=== PATIENT | female | born 1925 | race Caucasian/White ===

== ENCOUNTER 2016-11-18 06:19 | Emergency (ER) | payer MEDICARE ==
[~2016-11-18] VITALS: Ht 162.6 cm; Wt 68.0 kg
[~2016-11-18 06:19] MED LIST: AMLO5TAB96 PO; CEPH500C3 PO; LORTA5 PO; PERC2.5T PO
[2016-11-18 06:26] VITALS: BP 124/87; PULSE 57; RESP 16; TEMP 97.7; O2SAT 98
--- NOTE | 2016-11-18 06:43 | PD ---
HPI Chief Complaint: Head Injury Time Seen by Provider: 06:38 Travel History International Travel<30 days: No Contact w/Intl Traveler<30days: No Traveled to known affect area: No History of Present Illness HPI 89-year-old female patient presents to the ER today brought in by her daughter, states that she has a bad left hip and knee and does not know what happened but her left leg gave out on her and she fell and hit her head, has blood on her right scalp, is not sure whether she lost consciousness. She denies any other injuries but has pain in her left hip and knee which she has had in the past. She denies any chest pains, dizziness, shortness of breath, or other symptoms. Modifying Factors: None Associated Signs & Symptoms: Fall, head injury, scalp injury, left hip and knee pain Risk Factors: Elderly PFSH Past Medical History Arthritis: Yes Cancer: No Cardiovascular Problems: No High Cholesterol: Yes Diabetes: No Diminished Hearing: Yes ([place]) Diverticulitis: Yes Gastrointestinal Disorders: Yes (DIVERTICULITIS, COLON SURGERY, POLYPS REMOVE) Glaucoma: No Hepatitis: No Hiatal Hernia: No Hypertension: Yes Musculoskeletal: Yes (BONE SPURS REMOVED) Psychiatric: No Reproductive: Yes () Respiratory: No Thyroid Disease: No Menopausal: Yes Ectopic : Yes Past Surgical History Abdominal Surgery: Yes (resection due to diverticulitis ) Appendectomy: Yes Section: Yes Cholecystectomy: Yes Gynecologic Surgery: Yes (sx for tubal ) Hysterectomy: Yes Oral Surgery: Yes (tonsillectomy) Pacemaker: No Tonsillectomy: Yes Other Surgery: Yes Social History Alcohol Use: Yes (OCCAS. MIX DRINKS, WINE) Tobacco Use: No Substance Use: No Allergies-Medications (Allergen,Severity, Reaction): Coded Allergies: Smoke (Verified Allergy, Severe, RASH, DIFFICULTY BREATHING, 11/18/16) grass pollen (Unverified Allergy, Severe, DIFFICULTY BREATHING, 11/18/16) PT STATES SOME GRASSES mold (Unverified Allergy, Severe, DIFFICULTY BREATHING AND RASH, 11/18/16) mold extracts (Unverified Allergy, Severe, RASH AND DIFFICULTY BREATHING, 11/18/16) willow (Unverified Allergy, Severe, SOB, 11/18/16) Uncoded Allergies: CLOROX (Allergy, Severe, RASH, 10/15/12) MILDEW (Allergy, Severe, DIFFUCULTY BREATHING, 10/15/12) unknown antibiotic (Allergy, Severe, unknown reaction, 10/15/12) Reported Meds & Prescriptions Reported Meds & Active Scripts Active Keflex (Cephalexin Monohydrate) 500 Mg Cap 1 Tab PO BID 7 Days Hydrocodone/Acetaminophen 5 mg/325 mg Acetaminophen 325/5 Hydrocodone Tab 1 Tab PO Q6H PRN Reported Percocet 2.5/325 (Oxycodone/Acetaminophen) Oxycodone 2.5/325 Acetaminophen Tab 1 Tab PO Q6H Norvasc (Amlodipine Besylate) 5 Mg Tab 5 Mg PO DAILY Review of Systems Except as stated in HPI: all other systems reviewed are Neg Physical Exam Narrative GENERAL: Well-developed elderly white female patient currently in mild distress. Awake and oriented 3. SKIN: Focused skin assessment warm/dry. HEAD: Atraumatic. Normocephalic. Hematoma and dried blood over the right scalp area. EYES: Pupils equal and round. No scleral icterus. No injection or drainage. ENT: No nasal bleeding or discharge. Mucous membranes pink and moist. NECK: Trachea midline. No JVD. CARDIOVASCULAR: Regular rate and rhythm. No murmur appreciated. RESPIRATORY: No accessory muscle use. Clear to auscultation. Breath sounds equal bilaterally. GASTROINTESTINAL: Abdomen soft, non-tender, nondistended. Hepatic and splenic margins not palpable. Pelvis: Stable, tender palpation in the left hip. MUSCULOSKELETAL: No obvious deformities. No clubbing. No cyanosis. No edema. NEUROLOGICAL: Awake and alert. No obvious cranial nerve deficits. Motor grossly within normal limits. Normal speech. PSYCHIATRIC: Appropriate mood and affect; insight and judgment normal. Data Data Last Documented VS Vital Signs Date Time Temp Pulse Resp B/P (MAP) Pulse Ox O2 Delivery O2 Flow Rate FiO2 11/18/16 06:26 97.7 57 16 124/87 (99) 98 Room Air Orders Orders Ct Brain W/O Iv Contrast(Rout) (11/18/16 06:29) Ct Cerv Spine W/O Contrast (11/18/16 06:29) Hip, Uni(Ap&Lat) W Ap Pelvis (11/18/16 06:38) Knee, Complete (4vws) (11/18/16 06:38) MDM Medical Decision Making Medical Screen Exam Complete: Yes Emergency Medical Condition: Yes Medical Record Reviewed: Yes Differential Diagnosis Fall, head injury, scalp injury, knee and hip pain: contusions versus scalp laceration versus cranial injuries versus fractures Narrative Course CAT scan and x-rays were ordered for review of injury for the patient. Scalp area is irrigated by nurses. Physician Communication Physician Communication Case is signed out to oncoming physician, Dr. Marroquin, at 7 AM. Diagnosis Primary Impression: Fall at home Additional Impression: Head injury, acute, with loss of consciousness Condition: Stable Karissa Gonzalez MD Nov 18, 2016 06:43
--- NOTE | 2016-11-18 07:06 | RADRPT ---
EXAM DATE/TIME: 11/18/2016 06:52 [facility] COMPARISON: CT BRAIN W/O CONTRAST, October 24, 2015, 12:34. INDICATIONS : Trauma, fell and hit head. RADIATION DOSE: 33.04 CTDIvol (mGy) MEDICAL HISTORY : Hypertension. Diverticulitis. SURGICAL HISTORY : Hysterectomy. section.Appendectomy.Cholecystectomy. Colon surgery. ENCOUNTER: Initial ACUITY: 1 day PAIN SCALE: 6/10 LOCATION: Right cranial TECHNIQUE: Multiple contiguous axial images were obtained of the head. Using automated exposure control and adj ustment of the mA and/or kV according to patient size, radiation dose was kept as low as reasonably a chievable to obtain optimal diagnostic quality images. DICOM format image data is available electro nically for review and comparison. FINDINGS: CEREBRUM: The ventricles are normal for age. No evidence of midline shift, mass lesion, hemorrhage or acute in farction. No extra-axial fluid collections are seen. POSTERIOR FOSSA: The cerebellum and brainstem are intact. The 4th ventricle is midline. The cerebellopontine angle i s unremarkable. EXTRACRANIAL: The visualized portion of the orbits is intact. SKULL: There is a right-sided parietal soft tissue hematoma without evidence of underlying skull fracture. T he remainder of the soft tissues are normal. Orbits and sinuses are clear. CONCLUSION: Soft tissue hematoma overlying the right parietal region. No underlying osseous injury and no intracr anial injury.. Gaby Macedo MD on November 18, 2016 at 7:03 Board Certified Radiologist. This report was verified electronically.
--- NOTE | 2016-11-18 07:11 | RADRPT ---
EXAM DATE/TIME: 11/18/2016 06:52 [facility] COMPARISON: CT CERVICAL SPINE W/O CONTRAST, October 24, 2015, 12:34. INDICATIONS : Trauma, fell and hit head. RADIATION DOSE: 20.27 CTDIvol (mGy) MEDICAL HISTORY : Diverticulitis. Hypertension. SURGICAL HISTORY : Appendectomy. Hysterectomy. section.Cholecystectomy. Colon surgery. ENCOUNTER: Initial ACUITY: 1 day PAIN SCALE: 1/10 LOCATION: neck TECHNIQUE: Volumetric scanning of the cervical spine was performed. Multiplanar reconstructions in the sagittal, coronal and oblique axial planes were performed. Using automated exposure control and adjustment o f the mA and/or kV according to patient size, radiation dose was kept as low as reasonably achievable to obtain optimal diagnostic quality images. DICOM format image data is available electronically f or review and comparison. FINDINGS: VERTEBRAE: Normal vertebral body height. ALIGNMENT: No evidence of subluxation. Stable degenerative disc changes from C4-C7. Stable facet degenerative changes. No significant spinal canal narrowing. The adjacent soft tissues are unremarkable. The imaged lungs are clear. CONCLUSION: Stable degenerative changes of the cervical spine. No evidence of fracture. No soft tissue injury. Gaby Macedo MD on November 18, 2016 at 7:07 Board Certified Radiologist. This report was verified electronically.
--- NOTE | 2016-11-18 07:43 | RADRPT ---
EXAM DATE/TIME: 11/18/2016 07:20 [facility] COMPARISON: No previous studies available for comparison. INDICATIONS : Left hip pain post fall. MEDICAL HISTORY : Hypertension. SURGICAL HISTORY : None. ENCOUNTER: Initial ACUITY: 1 day PAIN SCORE: 4/10 LOCATION: Left hip. FINDINGS: Multiple views of the hips are obtained with severe degenerative changes seen within the left femoral head and acetabulum, superior lateral joint line migration subchondral cyst formation and subchondra l sclerosis. There is no visualized fracture of the disease. The bones appear normal mineralization. Soft tissues appear normal. 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 No visualized fracture. If there is a concern for occult fracture consider further evaluation with CT. Gaby Macedo MD on November 18, 2016 at 7:39 Board Certified Radiologist. This report was verified electronically.
--- NOTE | 2016-11-18 07:49 | RADRPT ---
EXAM DATE/TIME: 11/18/2016 07:23 [facility] COMPARISON: No previous studies available for comparison. INDICATIONS : Left knee pain post fall. MEDICAL HISTORY : None. SURGICAL HISTORY : None. ENCOUNTER: Initial ACUITY: 1 day PAIN SCORE: 4/10 LOCATION: Left knee. FINDINGS: Four view examination of the left knee demonstrates no evidence of fracture or dislocation. Bony min eralization is normal. The articular surfaces are intact. There is mild soft tissue prominence overl jesus manuel the patella. Extensive vascular calcifications are identified posteriorly.. CONCLUSION: Soft tissue prominence overlying the region of the patella consistent with contusion. Otherwise the e xam. Gaby Macedo MD on November 18, 2016 at 7:46 Board Certified Radiologist. This report was verified electronically.
[2016-11-18 07:53] VITALS: BP 126/63; PULSE 55; RESP 20; O2SAT 98
[2016-11-18] MEDS ORDERED: MORPHINE SULFATE 4 MG/ML INJ IV PUSH ONE (08:00)
--- NOTE | 2016-11-18 08:20 | PD ---
Physical Exam Time Seen by Provider: 08:[address] Marroquin asked me to repair the patients scalp laceration. Data Data Last Documented VS Vital Signs Date Time Temp Pulse Resp B/P (MAP) Pulse Ox O2 Delivery O2 Flow Rate FiO2 11/18/16 07:53 55 20 126/63 (84) 98 Room Air 11/18/16 06:[address] Brain W/O Iv Contrast(Rout) (11/18/16 06:29) Ct Cerv Spine W/O Contrast (11/18/16 06:29) Hip, Uni(Ap&Lat) W Ap Pelvis (11/18/16 06:38) Knee, Complete (4vws) (11/18/16 06:38) Morphine Inj (Morphine Inj) (11/18/16 08:00) MDM Supervised Visit with WALLACE: Yes Narrative Course Dr. Marroquin asked me to repair the patients scalp laceration. See my procedure note. Procedures Procedure Narrative LACERATION LOCATION: Right frontal scalp LENGTH: 2 cm NUMBER OF STITCHES/ROGER: 4 roger REPAIR: The area of the laceration was prepped with Betadine and sterilely draped. The laceration was infiltrated with 1% lidocaine. The wound was copiously irrigated and explored without evidence of foreign body, tendon injury or neurovascular injury. The wound was closed using roger. This was a single layer repair. A sterile dressing was applied. The patient was advised to keep the dressing clean and dry. Patient tolerated the procedure well. Diagnosis Primary Impression: Fall at home Additional Impression: Head injury, acute, with loss of consciousness Condition: Stable Christina Silva [facility] Nov 18, 2016 08:20
[2016-11-18] MEDS ORDERED: TRAM50TA PO (08:28)
--- NOTE | 2016-11-18 08:28 | PD ---
Data Data Last Documented VS Vital Signs Date Time Temp Pulse Resp B/P (MAP) Pulse Ox O2 Delivery O2 Flow Rate FiO2 11/18/16 07:53 55 20 126/63 (84) 98 Room Air 11/18/16 06:[address] Brain W/O Iv Contrast(Rout) (11/18/16 06:29) Ct Cerv Spine W/O Contrast (11/18/16 06:29) Hip, Uni(Ap&Lat) W Ap Pelvis (11/18/16 06:38) Knee, Complete (4vws) (11/18/16 06:38) Morphine Inj (Morphine Inj) (11/18/16 08:00) MDM Supervised Visit with WALLACE: No Narrative Course This patient was reevaluated by me. She had a closed head injury and has a laceration on the scalp. Laceration was irrigated by nurses and the physician virtual customer assistant repaired it. CT of the head and cervical spine were reassuring and x- rays are reassuring. Patient was able to ambulate here without difficulty so I doubt an occult hip fracture. Patient will be discharged home. Diagnosis Primary Impression: Fall at home Qualified Codes: W19.XXXA - Unspecified fall, initial encounter; Y92.099 - Unspecified place in other non-institutional residence as the place of occurrence of the external cause Additional Impression: Head injury, acute, with loss of consciousness Qualified Codes: S06.9X9A - Unspecified intracranial injury with loss of consciousness of unspecified duration, initial encounter Patient Instructions: General Instructions Additional Instruction: If you develop headache, difficulty walking, difficulty talking, weakness, numbness, lightheadedness or severe pain return to the emergency department. If you develop fevers, redness, swelling, or discharge from your wound return to the emergency room. Keep your wound dry for 24 hours. After that time, wash gently with warm soap and water. Do not use peroxide. Do not soak in baths or go swimming. Have your roger removed in 3-5 days. Med/Other Pt SpecificInfo: Prescription(s) given Scripts Tramadol (Tramadol) 50 Mg Tab 50 MG PO Q6H Y for PAIN, #12 TAB 0 Refills Prov: June Marroquin MD 11/18/16 Disposition: 01 DISCHARGE HOME Condition: Stable June Marroquin MD Nov 18, 2016 08:28
== END 2016-11-18 09:50 | disposition home or self-care (01) ==
LOC: NEPC 06:19
DX: S06.9X9A Unspecified intracranial injury with loss of consciousness of unspecified duration, initial encounter (principal); S01.01XA Laceration without foreign body of scalp, initial encounter; W19.XXXA Unspecified fall, initial encounter; Y92.099 Unspecified place in other non-institutional residence as the place of occurrence of the external cause; I10 Essential (primary) hypertension; M19.90 Unspecified osteoarthritis, unspecified site; E78.00 Pure hypercholesterolemia, unspecified
CPT/HCPCS: 12001; 70450; 72125; 73502; 73564; 96374; 99285; J2270

== ENCOUNTER 2016-11-23 10:45 | Emergency (ER) | payer MEDICARE ==
[~2016-11-23] VITALS: Ht 157.5 cm; Wt 53.9 kg
[~2016-11-23 10:45] MED LIST changes: +TRAM50TA PO
[2016-11-23 10:58] VITALS: BP 153/76; PULSE 62; RESP 18; TEMP 98.3
[2016-11-23] MEDS ORDERED: AMLO5TAB2 PO (11:09)
[2016-11-23] MEDS ORDERED: [UNRECOGNIZED DRUG - REMARK] PO (11:09)
[2016-11-23] MEDS ORDERED: PERC5TAB12 PO (11:09)
--- NOTE | 2016-11-23 11:24 | PD ---
HPI Chief Complaint: Wound/Suture/Staple Re-Check Time Seen by Provider: 11:23 Travel History International Travel<30 days: No Contact w/Intl Traveler<30days: No Traveled to known affect area: No History of Present Illness HPI 89-year-old female presents emergency department for staple removal to her scalp. Patient reports she had head injury 11/18/16 with scalp laceration repaired with roger in emergency department. She denies headaches, visual changes, nausea vomiting, weakness. PFSH Past Medical History Arthritis: Yes Cancer: No Cardiovascular Problems: No High Cholesterol: Yes Diabetes: No Diminished Hearing: Yes ([place] Diverticulitis: Yes Gastrointestinal Disorders: Yes (DIVERTICULITIS, COLON SURGERY, POLYPS REMOVE) Glaucoma: No Hepatitis: No Hiatal Hernia: No Hypertension: Yes Medical other: Yes (arthritis hx of pneumonia) Musculoskeletal: Yes (BONE SPURS REMOVED) Psychiatric: No Reproductive: Yes () Respiratory: No Thyroid Disease: No Influenza Vaccination: Yes Menopausal: Yes Ectopic : Yes Past Surgical History Abdominal Surgery: Yes (resection due to diverticulitis ) Appendectomy: Yes Section: Yes Cholecystectomy: Yes Gynecologic Surgery: Yes (sx for tubal ) Hysterectomy: Yes Oral Surgery: Yes (tonsillectomy) Pacemaker: No Tonsillectomy: Yes Other Surgery: Yes Social History Alcohol Use: Yes (OCCAS. MIX DRINKS, WINE) Tobacco Use: No Substance Use: No Allergies-Medications (Allergen,Severity, Reaction): Coded Allergies: Smoke (Verified Allergy, Severe, RASH, DIFFICULTY BREATHING, 11/23/16) grass pollen (Unverified Allergy, Severe, DIFFICULTY BREATHING, 11/23/16) PT STATES SOME GRASSES mold (Unverified Allergy, Severe, DIFFICULTY BREATHING AND RASH, 11/23/16) mold extracts (Unverified Allergy, Severe, RASH AND DIFFICULTY BREATHING, 11/23/16) willow (Unverified Allergy, Severe, SOB, 11/23/16) Uncoded Allergies: CLOROX (Allergy, Severe, RASH, 10/15/12) MILDEW (Allergy, Severe, DIFFUCULTY BREATHING, 10/15/12) unknown antibiotic (Allergy, Severe, unknown reaction, 10/15/12) Reported Meds & Prescriptions Reported Meds & Active Scripts Active Reported Percocet (Oxycodone-Acetaminophen) 5-325 mg Tab 0.5 Tab PO Q6H PRN Amlodipine (Amlodipine Besylate) 5 Mg Tab 5 Mg PO DAILY [chlesterol pill] 1 Tab PO DAILY Review of Systems Except as stated in HPI: all other systems reviewed are Neg Physical Exam Narrative GENERAL: Well-nourished, well-developed patient. SKIN: Focused skin assessment warm/dry. Well-healed 2 cm laceration to the right septal scalp with [address] No surrounding cellulitis or signs of infection. HEAD: Normocephalic. EYES: No scleral icterus. No injection or drainage. NECK: Supple, trachea midline. No JVD or lymphadenopathy. Data Data Last Documented VS Vital Signs Date Time Temp Pulse Resp B/P (MAP) Pulse Ox O2 Delivery O2 Flow Rate FiO2 11/23/16 10:58 98.3 62 18 153/76 (101) [facility] Medical Decision Making Medical Screen Exam Complete: Yes Emergency Medical Condition: Yes Differential Diagnosis Suture removal, wound recheck Narrative Course 89-year-old female here for staple removal to the right subdural scalp. Patient sustained an injury on 11/18/16. She reports no pain or drainage from the site. 4 roger removed. Wound is well-healed Procedures Procedure Narrative 4 [facility] removed using staple remover. Patient tolerated procedure well. Wound edges well approximated and healed. Diagnosis Primary Impression: Visit for suture removal Referrals: Primary Care Physician Disposition: 01 DISCHARGE HOME Condition: Stable Heather Howard Nov 23, 2016 11:24
== END 2016-11-23 11:36 | disposition home or self-care (01) ==
LOC: PHEFT 10:45
DX: S01.01XD Laceration without foreign body of scalp, subsequent encounter (principal); Z48.02 Encounter for removal of sutures; X58.XXXD Exposure to other specified factors, subsequent encounter
CPT/HCPCS: 99281

== ENCOUNTER 2016-12-19 13:56 | Inpatient (IN) | payer MEDICARE ==
[~2016-12-19] VITALS: Ht 157.5 cm; Wt 51.9 kg
[~2016-12-19 13:56] MED LIST changes: +AMLO5TAB2 PO; -AMLO5TAB96 PO; -CEPH500C3 PO; -LORTA5 PO; -PERC2.5T PO; +PERC5TAB12 PO; -TRAM50TA PO; +[UNRECOGNIZED DRUG - REMARK] PO
[2016-12-19 13:58] VITALS: BP 149/82; PULSE 66; RESP 18; TEMP 98.5; O2SAT 97
--- NOTE | 2016-12-19 14:03 | PD ---
Physical Exam Time Seen by Provider: 14:02 Narrative 89 y/o female here for evaluation of auditory hallucinations- she is hearing threatening voices. No psychiatric hx. Vital signs reviewed. Seen at triage desk. Awaiting bed placement. Data Data Last Documented VS Vital Signs Date Time Temp Pulse Resp B/P (MAP) Pulse Ox O2 Delivery O2 Flow Rate FiO2 12/19/16 13:58 98.5 66 18 149/82 (104) 97 Room Air [facility] Medical Record Reviewed: Yes Supervised Visit with WALLACE: Jesus Alberto Majano Dec 19, 2016 14:03
[2016-12-19 14:25] VITALS: BP 140/72; PULSE 59; RESP 33; TEMP 98.7; O2SAT 99
[2016-12-19] MEDS ORDERED: SODIUM CHLORIDE 0.9% FLUSH 5 ML FLUSH IV FLUSH PRN (14:30)
--- NOTE | 2016-12-19 14:30 | PD ---
HPI Chief Complaint: Altered Mental Status Time Seen by Provider: 14:20 Travel History International Travel<30 days: No Contact w/Intl Traveler<30days: No Traveled to known affect area: No History of Present Illness HPI Patient comes in for evaluation of altered mental status ongoing for at least a month per her sister who is with her states she has power of claims attorney. States that her sister is been hearing voices describing disturbing images. Denies any history of this. Denies anything making it better or worse. States she tried contacting patient's primary care doctor and has not heard back yet. Sister states she is concerned that she has tried hurting herself. Patient does live at home. Patient denies any pain anywhere. Sister's concern that she might be having side effects from her medication versus other. Patient states she is able to hear people talking about for distances without difficulty. Patient stable here her neighbor talking available good distance away. Patient talks about her grandson being arrested last night and taken to the courthouse, however patient's sister denies this. PFSH Past Medical History Arthritis: Yes Cancer: No Cardiovascular Problems: No High Cholesterol: Yes Diabetes: No Diminished Hearing: Yes ([place]) Diverticulitis: Yes Gastrointestinal Disorders: Yes (DIVERTICULITIS, COLON SURGERY, POLYPS REMOVE) Glaucoma: No Hepatitis: No Hiatal Hernia: No Hypertension: Yes Musculoskeletal: Yes (BONE SPURS REMOVED) Psychiatric: No Reproductive: Yes () Respiratory: No Thyroid Disease: No Menopausal: Yes Ectopic : Yes Past Surgical History Abdominal Surgery: Yes (resection due to diverticulitis ) Appendectomy: Yes Section: Yes Cholecystectomy: Yes Gynecologic Surgery: Yes (sx for tubal ) Hysterectomy: Yes Oral Surgery: Yes (tonsillectomy) Pacemaker: No Tonsillectomy: Yes Other Surgery: Yes Social History Alcohol Use: Yes (OCCAS. MIX DRINKS, WINE) Tobacco Use: No Substance Use: No Allergies-Medications (Allergen,Severity, Reaction): Coded Allergies: Smoke (Verified Allergy, Severe, RASH, DIFFICULTY BREATHING, 12/19/16) grass pollen (Unverified Allergy, Severe, DIFFICULTY BREATHING, 12/19/16) PT STATES SOME GRASSES mold (Unverified Allergy, Severe, DIFFICULTY BREATHING AND RASH, 12/19/16) mold extracts (Unverified Allergy, Severe, RASH AND DIFFICULTY BREATHING, 12/19/16) willow (Unverified Allergy, Severe, SOB, 12/19/16) Uncoded Allergies: CLOROX (Allergy, Severe, RASH, 10/15/12) MILDEW (Allergy, Severe, DIFFUCULTY BREATHING, 10/15/12) unknown antibiotic (Allergy, Severe, unknown reaction, 10/15/12) Reported Meds & Prescriptions Reported Meds & Active Scripts Active Reported Percocet (Oxycodone-Acetaminophen) 5-325 mg Tab 0.5 Tab PO Q6H PRN Amlodipine (Amlodipine Besylate) 5 Mg Tab 5 Mg PO DAILY [chlesterol pill] 1 Tab PO DAILY Review of Systems Except as stated in HPI: all other systems reviewed are Neg Physical Exam Narrative GENERAL: Well-developed, well nourished, in no acute distress, and non-ill appearing. SKIN: Focused skin assessment warm and dry. HEAD: Atraumatic. Normocephalic. EYES: Pupils equal and round. EOMI. No scleral icterus. No injection or drainage. ENT: No nasal bleeding or discharge. Mucous membranes pink and moist. NECK: Trachea midline. Supple. No nuclear rigidity. CARDIOVASCULAR: Regular rate and rhythm. No murmur appreciated. RESPIRATORY: No accessory muscle use. No respiratory distress. Clear to auscultation. Breath sounds equal bilaterally. GASTROINTESTINAL: Abdomen soft, non-tender, nondistended, and no guarding. Hepatic and splenic margins not palpable. Normal bowel sounds 4. No pulsatile mass. MUSCULOSKELETAL: No obvious deformities. No clubbing. No cyanosis. No edema. Full range of motion. NEUROLOGICAL: Awake and alert. No obvious cranial nerve deficits. Motor grossly within normal limits. Normal speech. PSYCHIATRIC: Appropriate mood and affect. Data Data Last Documented VS Vital Signs Date Time Temp Pulse Resp B/P (MAP) Pulse Ox O2 Delivery O2 Flow Rate FiO2 12/19/16 14:30 (94) Room Air 12/19/16 14:25 98.7 59 33 99 Orders Orders Electrocardiogram (12/19/16 14:21) Ammonia (12/19/16 14:21) Complete Blood Count With Diff (12/19/16 14:21) Comprehensive Metabolic Panel (12/19/16 14:21) Creatine Kinase (Cpk) (12/19/16 14:21) Prothrombin Time / Inr (Pt) (12/19/16 14:21) Act Partial Throm Time (Ptt) (12/19/16 14:21) Troponin I (12/19/16 14:21) Thyroid Stimulating Hormone (12/19/16 14:21) Urinalysis - C+S If Indicated (12/19/16 14:21) Ct Brain W/O Iv Contrast(Rout) (12/19/16 14:21) Blood Glucose (12/19/16 14:21) Ecg Monitoring (12/19/16 14:21) Iv Access Insert/Monitor (12/19/16 14:21) Oximetry (12/19/16 14:21) Sodium Chloride 0.9% Flush (Ns Flush) (12/19/16 14:30) Drug Screen, Random Urine (12/19/16 14:21) Alcohol (Ethanol) (12/19/16 14:21) Tylenol (Acetaminophen) (12/19/16 14:21) Salicylates (Aspirin) (12/19/16 14:21) Chest, Single Ap (12/19/16 ) Psych Screen (12/19/16 14:21) Sodium Chlorid 0.9% 500 Ml Inj (Ns 500 M (12/19/16 16:00) Potassium Chloride (Kcl) (12/19/16 16:00) Urine Culture (12/19/16 15:15) Ceftriaxone Inj (Rocephin Inj) (12/19/16 16:30) Magnesium (Mg) (12/19/16 16:56) Admit To Inpatient (12/19/16 ) Code Status (12/19/16 16:55) Vital Signs (Adult) Q4H (12/19/16 16:55) Neuro Checks Q4H (12/19/16 16:55) Activity Oob With Assistance (12/19/16 16:55) Tamping Machine Operator Road Forms / Telemetry .CONTINUOUS (12/19/16 16:55) Intake + Output DELISA.QSHIFT (12/19/16 16:55) Diet Regular Basic (12/19/16 Dinner) Sodium Chlor 0.9% 1000 Ml Inj (Ns 1000 M (12/19/16 16:55) Sodium Chloride 0.9% Flush (Ns Flush) (12/19/16 17:00) Sodium Chloride 0.9% Flush (Ns Flush) (12/19/16 21:00) Acetaminophen (Tylenol) (12/19/16 17:00) Ondansetron Inj (Zofran Inj) (12/19/16 17:00) Prochlorperazine Supp (Compazine Supp) (12/19/16 17:00) Electrocardiogram (12/19/16 16:55) Resp Oxygen Paco C Titrat 1-4 L (12/19/16 ) Pt Request For Service (12/19/16 16:55) Ot Request For Service (12/19/16 16:55) Case Management Consult (12/19/16 16:55) Heparin Inj (Heparin Inj) (12/19/16 17:00) Scd Bilateral/Knee High DELISA.BID (12/19/16 16:55) [place] Bilateral/Knee High DELISA.QSHIFT (12/19/16 17:00) Acetaminophen (Tylenol) (12/19/16 17:00) Oxycodone-Acetamin 5-325 Mg (Percocet (12/19/16 17:00) Oxycodone-Acetamin 10-325 Mg (Percocet 1 (12/19/16 17:00) Morphine Inj (Morphine Inj) (12/19/16 17:00) Morphine Inj (Morphine Inj) (12/19/16 17:00) Naloxone Inj (Narcan Inj) (12/19/16 17:00) Docusate Sodium-Senna (Millicent-Colace) (12/19/16 21:00) Magnesium Hydroxide Liq (Milk Of Magnesi (12/19/16 17:00) Sennosides (Senokot) (12/19/16 17:00) Bisacodyl Supp (Dulcolax Supp) (12/19/16 17:00) Lactulose Liq (Lactulose Liq) (12/19/16 17:00) Inpatient Certification (12/19/16 ) Admit Order (Ed Use Only) (12/19/16 17:01) Labs Laboratory Tests Test 12/19/16 14:30 12/19/16 15:10 12/19/16 15:15 White Blood Count 7.9 TH/MM3 Red Blood Count 3.96 MIL/MM3 Hemoglobin 11.2 GM/DL Hematocrit 32.9 % Mean Corpuscular Volume 83.1 FL Mean Corpuscular Hemoglobin 28.2 PG Mean Corpuscular Hemoglobin Concent 34.0 % Red Cell Distribution Width 13.9 % Platelet Count 279 TH/MM3 Mean Platelet Volume 8.2 FL Neutrophils (%) (Auto) 68.5 % Lymphocytes (%) (Auto) 18.3 % Monocytes (%) (Auto) 12.1 % Eosinophils (%) (Auto) 0.8 % Basophils (%) (Auto) 0.3 % Neutrophils # (Auto) 5.4 TH/MM3 Lymphocytes # (Auto) 1.5 TH/MM3 Monocytes # (Auto) 1.0 TH/MM3 Eosinophils # (Auto) 0.1 TH/MM3 Basophils # (Auto) 0.0 TH/MM3 CBC Comment DIFF FINAL Differential Comment Prothrombin Time 11.6 SEC Prothromb Time International Ratio 1.0 RATIO Activated Partial Thromboplast Time 27.3 SEC Blood Urea Nitrogen 19 MG/DL Creatinine 1.02 MG/DL Random Glucose 91 MG/DL Total Protein 7.4 GM/DL Albumin 3.9 GM/DL Calcium Level 9.0 MG/DL Alkaline Phosphatase 73 U/L Aspartate Amino Transf (AST/SGOT) 14 U/L Alanine Aminotransferase (ALT/SGPT) 13 U/L Total Bilirubin 0.8 MG/DL Sodium Level 129 MEQ/L Potassium Level 3.0 MEQ/L Chloride Level 94 MEQ/L Carbon Dioxide Level 28.4 MEQ/L Anion Gap 7 MEQ/L Estimat Glomerular Filtration Rate 51 ML/MIN Total Creatine Kinase 87 U/L Troponin I LESS THAN 0.02 NG/ML Thyroid Stimulating Hormone 3rd Gen 0.827 uIU/ML Acetaminophen Level LESS THAN 2.0 MCG/ML Ethyl Alcohol Level LESS THAN 3 MG/DL Ammonia 19 MCMOL/L Urine Color YELLOW Urine Turbidity HAZY Urine pH 5.5 Urine Specific [place] 1.021 Urine Protein 30 mg/dL Urine Glucose (UA) NEG mg/dL Urine Ketones NEG mg/dL Urine Occult Blood NEG Urine Nitrite NEG Urine Bilirubin NEG Urine Urobilinogen LESS THAN 2.0 MG/DL Urine Leukocyte Esterase LARGE Urine RBC 8 /hpf Urine WBC 32 /hpf Urine Squamous Epithelial Cells 7 /hpf Urine Bacteria FEW /hpf Urine Hyaline Casts 9 /lpf Microscopic Urinalysis Comment CULTURE INDICATED Salicylates Level LESS THAN 1.7 MG/DL Urine Opiates Screen NEG Urine Barbiturates Screen NEG Urine Amphetamines Screen NEG Urine Benzodiazepines Screen NEG Urine Cocaine Screen NEG Urine Cannabinoids Screen NEG MDM Medical Decision Making Medical Screen Exam Complete: Yes Emergency Medical Condition: Yes Interpretation(s) EKG reviewed by Dr. Gonzalez shows sinus rhythm with PVCs and ventricular rate of 61. No STEMI. Chest x-ray read by the radiologist shows: Status-post left total shoulder arthroplasty. Compensated cardiomegaly without failure. Negative for infiltrate or effusion. Last Impressions Head CT 12/19/16 1421 Signed Impressions: Service Date/Time: Saturday, December 19, 2016 15:48 - CONCLUSION: 1. No evidence of acute intracranial pathology. Chronic ischemic changes as above. Eros Handley MD Differential Diagnosis Dementia, electrolyte abnormality, UTI, TIA, CVA, mass, pneumonia, renal insufficiency, encephalitis, other Narrative Course Patient was seen and examined. Laboratory studies were ordered. IV was established the patient was placed on cardiac monitoring. Patient was given 500 bolus of IV fluid and potassium was replaced. Discussed patient with Dr. Gonzalez, who is agreeable with plan of care and disposition. Discussed all findings and plan care of patient and her sister who is agreeable for admission. All questions were answered. Discussed patient with hospitalist who is agreeable to admit the patient. Physician Communication Physician Communication [id number] Mora, who is agreeable to admit the patient. Diagnosis Primary Impression: Altered mental status, unspecified Qualified Codes: R41.82 - Altered mental status, unspecified Additional Impressions: Auditory hallucinations Hyponatremia UTI (urinary tract infection) Qualified Codes: N39.0 - Urinary tract infection, site not specified; R31.9 - Hematuria, unspecified Hypokalemia Admitting Information Admitting Physician Requests: Admit Condition: Stable Lisandro Chacon Dec 19, 2016 14:29
--- NOTE | 2016-12-19 14:55 | RADRPT ---
EXAM DATE/TIME: 12/19/2016 14:43 [facility] COMPARISON: CHEST SINGLE AP, October 17, 2013, 11:12. INDICATIONS : Altered mental status for 1 month. MEDICAL HISTORY : Hypertension. SURGICAL HISTORY : Appendectomy. Cholecystectomy. Hysterectomy. ENCOUNTER: Initial ACUITY: 1 month PAIN SCORE: 0/10 LOCATION: Bilateral chest FINDINGS: Status-post left total shoulder arthroplasty. Compensated cardiomegaly without failure. Negative fo r infiltrate or effusion. CONCLUSION: Status-post left total shoulder arthroplasty. Compensated cardiomegaly without failure. Negative fo r infiltrate or effusion. Neto Reid MD FACR on December 19, 2016 at 14:51 Board Certified Radiologist. This report was verified electronically.
[2016-12-19 15:00] LABS: AUTOMATED NEUTROPHIL # 5.4 TH/MM3 (1.8-7.7); BASOPHIL % 0.3 % (0.0-2.0); EOSINOPHIL # 0.1 TH/MM3 (0-0.4); EOSINOPHIL % 0.8 % (0.0-4.0); HEMATOCRIT 32.9 % (35.0-46.0); HEMO FLAGS DIFF FINAL; LYMPH % 18.3 % (9.0-44.0); LYMPHOCYTE # 1.5 TH/MM3 (1.0-4.8); MEAN CELL VOLUME 83.1 FL (80.0-100.0); MEAN CORPUSCULAR HEMOGLOBIN 28.2 PG (27.0-34.0); MONO % 12.1 % (0.0-8.0); NEUT % 68.5 % (16.0-70.0); PLATELET COUNT 279 TH/MM3 (150-450); RED BLOOD COUNT 3.96 MIL/MM3 (4.00-5.30); RED CELL DISTRIBUTION WIDTH 13.9 % (11.6-17.2); WHITE BLOOD COUNT 7.9 TH/MM3 (4.0-11.0)
[2016-12-19 15:10] LABS: APTT (PATIENT) 27.3 SEC (24.3-30.1); PROTHROMBIN TIME - PATIENT 11.6 SEC (9.8-11.6)
[2016-12-19 15:25] LABS: ALT (GPT) 13 U/L (10-53); ANION GAP 7 MEQ/L (5-15); AST (GOT) 14 U/L (15-37); BICARBONATE 28.4 MEQ/L (21.0-32.0); BLOOD UREA NITROGEN 19 MG/DL (7-18); CHLORIDE 94 MEQ/L (98-107); GLOMERULAR FILTRATION RATE 51 ML/MIN (>89); SODIUM (NA) 129 MEQ/L (136-145)
[2016-12-19 15:55] LABS: ALKALINE PHOSPHATASE 73 U/L (45-117); TOTAL BILIRUBIN ADULT 0.8 MG/DL (0.2-1.0)
[2016-12-19 16:00] LABS: ACETAMINOPHEN LESS THAN 2.0 MCG/ML (10.0-30.0); CREATINE KINASE 87 U/L (26-192)
[2016-12-19] MEDS ORDERED: SODIUM CHLORID 0.9% 500 ML INJ 500 ML IV ONE (16:00)
[2016-12-19] MEDS ORDERED: POTASSIUM CHLORIDE 20 MEQ CONTROLLED RELEASE TAB PO ONE (16:00)
[2016-12-19 16:01] LABS: ALCOHOL LESS THAN 3 MG/DL (0-5)
--- NOTE | 2016-12-19 16:15 | RADRPT ---
EXAM DATE/TIME: 12/19/2016 15:48 [facility] COMPARISON: CT BRAIN W/O CONTRAST, November 18, 2016, 6:52. INDICATIONS : Altered mental status with confusion. RADIATION DOSE: 56.77 CTDIvol (mGy) MEDICAL HISTORY : Diverticulitis. SURGICAL HISTORY : Colon resection. Hysterectomy. ENCOUNTER: Initial ACUITY: 1 day PAIN SCALE: 1/10 LOCATION: cranial TECHNIQUE: Multiple contiguous axial images were obtained of the head. Using automated exposure control and adj ustment of the mA and/or kV according to patient size, radiation dose was kept as low as reasonably a chievable to obtain optimal diagnostic quality images. DICOM format image data is available electro nically for review and comparison. FINDINGS: Noncontrast axial head CT demonstrates the ventricles to be normal in size and configuration with a n ormal sulcal pattern. No acute intracranial hemorrhage, acute cortical infarction, mass or midline sh ift is seen. There is periventricular hypodensity compatible with chronic ischemic change slightly mo re than expected for patient this age. Posterior fossa structures are unremarkable. Bone windows are unremarkable. CONCLUSION: 1. No evidence of acute intracranial pathology. Chronic ischemic changes as above. Eros Handley MD on December 19, 2016 at 16:12 Board Certified Radiologist. This report was verified electronically.
[2016-12-19 16:22] LABS: BACTERIA, URINE FEW /hpf; BLOOD, URINE NEG (NEG); COMMENT (UR) CULTURE INDICATED; CULTURE IF INDICATED CULTURE INDICATED; GLUCOSE,URINE NEG (NEG); HYALINE CAST, URINE 9 /lpf (RARE); KETONE, URINE NEG (NEG); NITRITE,URINE NEG (NEG); PH, URINE 5.5 (5.0-8.5); SQUAMOUS EPITHELIAL CELL URINE 7 /hpf (0-5); URINE COLOR YELLOW (YELLW/STRAW)
[2016-12-19] MEDS ORDERED: cefTRIAXone INJ 1,000 MG in SODIUM CHLORIDE 0.9% INJ 100 ML IV ONE (16:30)
[2016-12-19] MEDS ORDERED: ACETAMINOPHEN 325 MG TAB PO PRN ×2 (17:00)
[2016-12-19] MEDS ORDERED: ONDANSETRON HCL 4 MG/2 ML VIAL IVP PRN (17:00)
[2016-12-19] MEDS ORDERED: MAGNESIUM HYDROXIDE SUSP 30 ML CUP PO PRN (17:00)
[2016-12-19] MEDS ORDERED: LACTULOSE SYRUP 20 GM/30 ML CUP PO PRN (17:00)
[2016-12-19] MEDS ORDERED: SENNOSIDES 8.6 MG TAB PO PRN (17:00)
[2016-12-19] MEDS ORDERED: oxyCODONE/ACETAMINOPHEN 10 MG/325 MG TAB PO PRN (17:00)
[2016-12-19] MEDS ORDERED: NALOXONE HCL 0.4 MG/ML AMP IV PUSH PRN (17:00)
[2016-12-19] MEDS ORDERED: MORPHINE SULFATE 4 MG/ML INJ IV PUSH PRN ×2 (17:00)
[2016-12-19] MEDS ORDERED: BISACODYL 10 MG SUPP RECTAL PRN (17:00)
[2016-12-19] MEDS ORDERED: SODIUM CHLORIDE 0.9% FLUSH 10 ML FLUSH IV FLUSH PRN (17:00)
[2016-12-19] MEDS ORDERED: PROCHLORPERAZINE 25 MG SUPP RECTAL PRN (17:00)
[2016-12-19] MEDS ORDERED: HALO0.5T PO (17:19)
[2016-12-19] MEDS ORDERED: ESZO1TAB PO (17:19)
[2016-12-19] MEDS ORDERED: LISI20TA PO (17:19)
[2016-12-19] MEDS ORDERED: PERC5TAB12 PO (17:19)
[2016-12-19 17:45] LABS: MAGNESIUM 2.3 MG/DL (1.5-2.5)
[2016-12-19] MEDS: SODIUM CHLOR 0.9% 1000 ML INJ 1,000 ML IV SCH (18:05)
[2016-12-19 18:12] VITALS: O2SAT 98
[2016-12-19] MEDS: HEPARIN SODIUM - SQ 10,000 UNITS/ML VIAL SQ SCH (18:13)
[2016-12-19 18:17] VITALS: BP 169/77; PULSE 61; RESP 18; O2SAT 96
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
[2016-12-19] MEDS: DOCUSATE SODIUM 50 MG/SENNA 8.6 MG TAB PO SCH (20:21)
[2016-12-19] MEDS: SODIUM CHLORIDE 0.9% FLUSH 10 ML FLUSH IV FLUSH SCH (20:22)
[2016-12-19 20:38] LABS: HEMOGLOBIN A1a 0.9 %; HEMOGLOBIN A1b 1.8 %; HEMOGLOBIN Ao 85.5 %; HEMOGLOBIN LA1C 2.1 %; HEMOGLOBIN P3 3.9 %
[2016-12-19 20:58] VITALS: BP 150/67; PULSE 60; RESP 18; TEMP 97.4; O2SAT 98
[2016-12-20] VITALS (7 sets, daily range): BP systolic 142–167; BP diastolic 60–104; PULSE 52–66; RESP 18–20; TEMP 96.7–98.1; O2SAT 94–98
[2016-12-20] MEDS: HEPARIN SODIUM - SQ 10,000 UNITS/ML VIAL SQ SCH ×2 (05:25→17:09)
[2016-12-20 07:36] LABS: AUTOMATED NEUTROPHIL # 3.1 TH/MM3 (1.8-7.7); BASOPHIL % 0.5 % (0.0-2.0); EOSINOPHIL # 0.1 TH/MM3 (0-0.4); EOSINOPHIL % 2.2 % (0.0-4.0); HEMATOCRIT 30.6 % (35.0-46.0); HEMO FLAGS DIFF FINAL; LYMPH % 26.7 % (9.0-44.0); LYMPHOCYTE # 1.4 TH/MM3 (1.0-4.8); MEAN CELL VOLUME 84.3 FL (80.0-100.0); MEAN CORPUSCULAR HEMOGLOBIN 28.1 PG (27.0-34.0); MEAN CORPUSCULAR HGB CONC 33.3 % (32.0-36.0); NEUT % 59.6 % (16.0-70.0); PLATELET COUNT 219 TH/MM3 (150-450); RED BLOOD COUNT 3.63 MIL/MM3 (4.00-5.30); RED CELL DISTRIBUTION WIDTH 14.3 % (11.6-17.2); WHITE BLOOD COUNT 5.2 TH/MM3 (4.0-11.0)
--- NOTE | 2016-12-20 07:57 | EKG ---
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
[2016-12-20 08:09] LABS: ALT (GPT) 8 U/L (10-53); ANION GAP 7 MEQ/L (5-15); AST (GOT) 13 U/L (15-37); BICARBONATE 25.1 MEQ/L (21.0-32.0); BLOOD UREA NITROGEN 14 MG/DL (7-18); CHLORIDE 105 MEQ/L (98-107); GLOMERULAR FILTRATION RATE 76 ML/MIN (>89); POTASSIUM 3.9 MEQ/L (3.5-5.1); SODIUM (NA) 137 MEQ/L (136-145)
[2016-12-20 08:17] LABS: ALKALINE PHOSPHATASE 60 U/L (45-117); TOTAL BILIRUBIN ADULT 0.7 MG/DL (0.2-1.0)
--- NOTE | 2016-12-20 08:28 | HHI.PR ---
Subjective Remarks This is a 89-year-old female with a past medical history significant for hypertension, dyslipidemia and osteoarthritis who presents to [facility] ED brought in by her sister for altered mental status. Patient is a poor historian and therefore much of the history is obtained from discussion with the sister who is at the bedside. Patient lives by herself but her sister visits her daily. Per the patient's sister, patient's had ongoing hallucinations for the past month that have been increasing in frequency. Patient's been preoccupied that members of her family are trying to harm her. Reportedly, she has also been threatening to harm herself. She's been having angry violent outburst. Today, patient was much more agitated and was insistent her grandson had been arrested and was in detention which according to the sister is false. Patient apparently called her grandson's claiming her grandson was threatening to kill her. The sister is concerned that the patient has not been eating well. Patient recently had an MRI brain ordered by her primary care physician Dr. Bernal however the sister has not been able to get a response from his office in regards to the results. Patient takes Percocet for back and left hip pain. Per her account, she has only taken a half a pill in the past 2 weeks. Patient is also prescribed Lunesta 3 mg for sleep. Patient is aware she is in the hospital. She knows that the years 2017 but cannot recall the month correctly. She does not know who the president is. Patient's only complaint at present is left hip pain. She denies any recent illness or fever or chills. She denies any chest pain or shortness of breath. She doesn' t endorse some nausea earlier in the week but this is resolved. She denies any vomiting or abdominal pain. She endorses constipation and states she's not had bowel movement in 3 days. She denies any urinary frequency or dysuria but does report lower than normal amount of urine. Patient's sister denies noticing patient having any weakness or slurred speech. She also denies any previous history of stroke or heart attack. She denies any previous dementia or family history of dementia. 9-28 a little less confused than yesterday. Continue antibiotics. Continue physical therapy and occupational therapy. Consults psychiatry Discussed with patient and RN Objective Vitals Vital Signs Date Time Temp Pulse Resp B/P (MAP) Pulse Ox O2 Delivery O2 Flow Rate FiO2 12/20/16 04:51 98.1 60 18 142/60 (87) 97 12/20/16 00:58 97.7 60 18 142/60 (87) 97 12/19/16 20:58 97.4 60 18 150/67 (94) 98 12/19/16 18:49 12/19/16 18:17 61 18 169/77 (107) 96 Room Air 12/19/16 18:12 98 21 12/19/16 14:30 (94) Room Air 12/19/16 14:25 98.7 59 33 140/72 (94) 99 Room Air 12/19/16 14:20 59 34 12/19/16 14:18 63 34 98 Room Air 12/19/16 13:58 98.5 66 18 149/82 (104) 97 Room Air I/O 12/19/16 12/19/16 12/19/16 12/20/16 12/20/16 12/20/16 07:00 15:00 23:00 07:00 15:00 23:00 Intake Total 600 ml 777 ml Balance 600 ml 777 ml Intake IV Total 600 ml 777 ml Result Diagram: 12/20/16 0640 12/20/16 0640 Other Results Laboratory Tests Test 12/19/16 14:30 12/19/16 14:49 12/19/16 15:10 12/19/16 15:15 White Blood Count 7.9 TH/MM3 Red Blood Count 3.96 MIL/MM3 Hemoglobin 11.2 GM/DL Hematocrit 32.9 % Mean Corpuscular Volume 83.1 FL Mean Corpuscular Hemoglobin 28.2 PG Mean Corpuscular Hemoglobin Concent 34.0 % Red Cell Distribution Width 13.9 % Platelet Count 279 TH/MM3 Mean Platelet Volume 8.2 FL Neutrophils (%) (Auto) 68.5 % Lymphocytes (%) (Auto) 18.3 % Monocytes (%) (Auto) 12.1 % Eosinophils (%) (Auto) 0.8 % Basophils (%) (Auto) 0.3 % Neutrophils # (Auto) 5.4 TH/MM3 Lymphocytes # (Auto) 1.5 TH/MM3 Monocytes # (Auto) 1.0 TH/MM3 Eosinophils # (Auto) 0.1 TH/MM3 Basophils # (Auto) 0.0 TH/MM3 CBC Comment DIFF FINAL Differential Comment Prothrombin Time 11.6 SEC Prothromb Time International Ratio 1.0 RATIO Activated Partial Thromboplast Time 27.3 SEC Blood Urea Nitrogen 19 MG/DL Creatinine 1.02 MG/DL Random Glucose 91 MG/DL Total Protein 7.4 GM/DL Albumin 3.9 GM/DL Calcium Level 9.0 MG/DL Magnesium Level 2.3 MG/DL Alkaline Phosphatase 73 U/L Aspartate Amino Transf (AST/SGOT) 14 U/L Alanine Aminotransferase (ALT/SGPT) 13 U/L Total Bilirubin 0.8 MG/DL Sodium Level 129 MEQ/L Potassium Level 3.0 MEQ/L Chloride Level 94 MEQ/L Carbon Dioxide Level 28.4 MEQ/L Anion Gap 7 MEQ/L Estimat Glomerular Filtration Rate 51 ML/MIN Total Creatine Kinase 87 U/L Troponin I LESS THAN 0.02 NG/ML Thyroid Stimulating Hormone 3rd Gen 0.827 uIU/ML Acetaminophen Level LESS THAN 2.0 MCG/ML Ethyl Alcohol Level LESS THAN 3 MG/DL Hemoglobin A1c 5.5 % Vitamin B12 Level 402 PG/ML Folate GREATER THAN 20.0 NG/ML Ammonia 19 MCMOL/L Urine Color YELLOW Urine Turbidity HAZY Urine pH 5.5 Urine Specific [place] 1.021 Urine Protein 30 mg/dL Urine Glucose (UA) NEG mg/dL Urine Ketones NEG mg/dL Urine Occult Blood NEG Urine Nitrite NEG Urine Bilirubin NEG Urine Urobilinogen LESS THAN 2.0 MG/DL Urine Leukocyte Esterase LARGE Urine RBC 8 /hpf Urine WBC 32 /hpf Urine Squamous Epithelial Cells 7 /hpf Urine Bacteria FEW /hpf Urine Hyaline Casts 9 /lpf Microscopic Urinalysis Comment CULTURE INDICATED Salicylates Level LESS THAN 1.7 MG/DL Urine Opiates Screen NEG Urine Barbiturates Screen NEG Urine Amphetamines Screen NEG Urine Benzodiazepines Screen NEG Urine Cocaine Screen NEG Urine Cannabinoids Screen NEG Test 12/19/16 20:45 12/20/16 06:40 White Blood Count 5.2 TH/MM3 Red Blood Count 3.63 MIL/MM3 Hemoglobin 10.2 GM/DL Hematocrit 30.6 % Mean Corpuscular Volume 84.3 FL Mean Corpuscular Hemoglobin 28.1 PG Mean Corpuscular Hemoglobin Concent 33.3 % Red Cell Distribution Width 14.3 % Platelet Count 219 TH/MM3 Mean Platelet Volume 9.0 FL Neutrophils (%) (Auto) 59.6 % Lymphocytes (%) (Auto) 26.7 % Monocytes (%) (Auto) 11.0 % Eosinophils (%) (Auto) 2.2 % Basophils (%) (Auto) 0.5 % Neutrophils # (Auto) 3.1 TH/MM3 Lymphocytes # (Auto) 1.4 TH/MM3 Monocytes # (Auto) 0.6 TH/MM3 Eosinophils # (Auto) 0.1 TH/MM3 Basophils # (Auto) 0.0 TH/MM3 CBC Comment DIFF FINAL Differential Comment Blood Urea Nitrogen 14 MG/DL Creatinine 0.72 MG/DL Random Glucose 91 MG/DL Total Protein 6.1 GM/DL Albumin 3.1 GM/DL Calcium Level 8.1 MG/DL Alkaline Phosphatase 60 U/L Aspartate Amino Transf (AST/SGOT) 13 U/L Alanine Aminotransferase (ALT/SGPT) 8 U/L Total Bilirubin 0.7 MG/DL Sodium Level 137 MEQ/L Potassium Level 3.9 MEQ/L Chloride Level 105 MEQ/L Carbon Dioxide Level 25.1 MEQ/L Anion Gap 7 MEQ/L Estimat Glomerular Filtration Rate 76 ML/MIN Imaging Last Impressions Head CT 12/19/16 1421 Signed Impressions: Service Date/Time: Monday, December 19, 2016 15:48 - CONCLUSION: 1. No evidence of acute intracranial pathology. Chronic ischemic changes as above. Eros Handley MD Chest X-Ray 12/19/16 0000 Signed Impressions: Service Date/Time: Monday, December 19, 2016 14:43 - CONCLUSION: Status-post left total shoulder arthroplasty. Compensated cardiomegaly without failure. Negative for infiltrate or effusion. eNto Redi MD FACR Objective Remarks GENERAL: This is a well-nourished, well-developed patient, in no apparent distress. She appears younger than her stated age. She is hard of hearing. Sister is at the bedside. SKIN: No rashes, ecchymoses or lesions. Cool and dry. HEAD: Atraumatic. Normocephalic. No temporal or scalp tenderness. EYES: Pupils equal round and reactive. Extraocular motions intact. No scleral icterus. No injection or drainage. ENT: Nose without bleeding, purulent drainage. Throat without erythema, tonsillar hypertrophy or exudate. Uvula midline. Airway patent. NECK: Trachea midline. No lymphadenopathy. Supple, nontender, no meningeal signs. CARDIOVASCULAR: Regular rate and rhythm without murmurs, gallops, or rubs. S1 and S2 no S3 or S4 RESPIRATORY: Clear to auscultation. Breath sounds equal bilaterally. No wheezes , rales, or rhonchi. GASTROINTESTINAL: Abdomen soft, non-tender, nondistended. No hepato-splenomegaly , or palpable masses. No guarding. MUSCULOSKELETAL: Extremities without clubbing, cyanosis, or edema. No calf tenderness. NEUROLOGICAL: Awake and alert. Oriented to self and place. Able to move all extremities spontaneously. Nonfocal. Normal speech. Insight and judgment is limited Mood and behavior are somewhat appropriate Procedures None Medications and IVs Current Medications IV Flush (NS Flush) 2 ml UNSCH PRN IV FLUSH FLUSH AFTER USING IV ACCESS; Start 12/19/16 at 14:30; Stop 12/19/16 at 17:09; Status DC Sodium Chloride 500 ml @ 500 mls/hr BOLUS ONCE IV Last administered on 17:01; Start 12/19/16 at 16:00; Stop 12/19/16 at 16:59; Status DC Potassium Chloride (KCl) 40 meq ONCE ONCE PO Last administered on 12/19/16 17 :00; Start 12/19/16 at 16:00; Stop 12/19/16 at 16:01; Status DC Ceftriaxone Sodium 1000 mg/ Sodium Chloride 100 ml @ 200 mls/hr ONCE ONCE IV Last administered on 12/19/16 17:00; Start 12/19/16 at 16:30; Stop 12/19/16 at 16:59; Status DC Sodium Chloride 1,000 ml @ 83 mls/hr Q12H3M IV Last administered on 12/19/16 18:05; Start 12/19/16 at 17:00 Sodium Chloride (NS Flush) 2 ml UNSCH PRN IV FLUSH FLUSH AFTER USING IV ACCESS ; Start 12/19/16 at 17:00 Sodium Chloride (NS Flush) 2 ml BID IV FLUSH Last administered on 12/19/16 20: 22; Start 12/19/16 at 21:00 Acetaminophen (Tylenol) 650 mg Q4H PRN PO TEMP > 100.4; Start 12/19/16 at 17:00 Ondansetron HCl (Zofran Inj) 4 mg Q6H PRN IVP NAUSEA OR VOMITING; Start at 17:00 Prochlorperazine (Compazine Supp) 25 mg Q12H PRN RECTAL NAUSEA OR VOMITING; Start 12/19/16 at 17:00 Heparin Sodium (Porcine) (Heparin Inj) 5,000 units Q12H SQ Last administered on 12/20/16t 05:25; Start 12/19/16 at 18:00 Acetaminophen (Tylenol) 650 mg Q6H PRN PO PAIN SCALE 1 TO 2; Start 12/19/16 at 17:00 Oxycodone/ Acetaminophen (Percocet 5-325 Mg) 1 tab Q6H PRN PO PAIN SCALE 3 TO 5; Start 12/19/16 at 17:00 Oxycodone/ Acetaminophen (Percocet 10-325 Mg) 1 tab Q6H PRN PO PAIN SCALE 6 TO 10; Start 12/19/16 at 17:00 Morphine Sulfate (Morphine Inj) 2 mg Q3H PRN IV PUSH Pain 3-5; if unable to take PO; Start 12/19/16 at 17:00 Morphine Sulfate (Morphine Inj) 4 mg Q3H PRN IV PUSH Pain 6-10;if unable to take PO; Start 12/19/16 at 17:00 Naloxone HCl (Narcan Inj) 0.4 mg UNSCH PRN IV PUSH SEE LABEL COMMENTS; Start at 17:00 Senna/Docusate Sodium (Millicent-Colace) 1 tab BID PO Last administered on t 20:21; Start 12/19/16 at 21:00 Magnesium Hydroxide (Milk Of Magnesia Liq) 30 ml Q12H PRN PO MILD - MODERATE CONSTIPATION; Start 12/19/16 at 17:00 Sennosides (Senokot) 17.2 mg Q12H PRN PO MODERATE - SEVERE CONSTIPATION; Start 12/19/16 at 17:00 Bisacodyl (Dulcolax Supp) 10 mg DAILY PRN RECTAL SEVERE CONSITIPATION; Start at 17:00 Lactulose (Lactulose Liq) 30 ml DAILY PRN PO SEVERE CONSITIPATION; Start at 17:00 Amlodipine Besylate (Norvasc) 5 mg DAILY PO ; Start 12/20/16 at 09:00 Ceftriaxone Sodium 1000 mg/ Sodium Chloride 100 ml @ 200 mls/hr Q24H IV ; Start 12/20/16 at 17:00 Urinary Catheter: No Vascular Central Line Catheter: No A/P Assessment and Plan 89-year-old female with a past medical history significant for hypertension, dyslipidemia and osteoarthritis who presents to [facility] ED brought in by her sister for altered mental status. Encephalopathy - Concern for possible dementia - Possibly related to medication use, infection, dehydration - Patient is afebrile. White count is normal. Patient satting 99% on room air. TSH level WNL. Ammonia level 19. UDS unremarkable. - UA suggestive of UTI. - Chest x-ray personally reviewed shows compensated cardiomegaly without failure no evidence of infiltrate or effusion - CT head personally reviewed showing no evidence of acute intracranial pathology, chronic ischemic changes noted. - Consult Neurology - Hold all sedating medications - Neuro checks every 4 - Continuous cardiac monitoring - obtain B12 level, folate level, HgbA1c and RPR -Consult psychiatry UTI - Patient given ceftriaxone in the ED - Continue - Follow up on final culture results -Continue Rocephin MIGUELINA - Unknown baseline. Most recent creatinine value in the system 0.78 10/24/15 - Gentle IV fluids - Avoid nephrotoxic agents - monitor I&Os - Monitor kidney function Hyponatremia - Likely due to dehydration/poor by mouth intake - IV fluid - A.m. labs to monitor response Hypokalemia - Patient given repletion in the ED - A.m. labs to monitor response - mag level 2.3 HTN - Continue patient on home dose of amlodipine 5mg daily - Hold lisinopril/hydrochlorothiazide - Monitor BP Anemia - mild - Possibly due to hemoconcentration - repeat CBC in am DVT prophylaxis - Heparin sq Add-on lipid panel Neto Mora DO Dec 20, 2016 08:28
[2016-12-20] MEDS: SODIUM CHLOR 0.9% 1000 ML INJ 1,000 ML IV SCH (08:36)
[2016-12-20] MEDS: SODIUM CHLORIDE 0.9% FLUSH 10 ML FLUSH IV FLUSH SCH ×2 (08:37→21:00)
[2016-12-20] MEDS: amLODIPine BESYLATE 5 MG TAB PO SCH (08:38)
[2016-12-20] MEDS: DOCUSATE SODIUM 50 MG/SENNA 8.6 MG TAB PO SCH ×2 (08:38→21:34)
[2016-12-20 08:56] LABS: HDL CHOLESTEROL 50.5 MG/DL (40.0-60.0)
[2016-12-20] MEDS: oxyCODONE/ACETAMINOPHEN 5 MG/325 MG TAB PO PRN ×2 (14:00→21:34)
[2016-12-20] MEDS ORDERED: cefTRIAXone INJ 1,000 MG in SODIUM CHLORIDE 0.9% INJ 100 ML IV SCH (17:00)
[2016-12-21 01:33] VITALS: BP 189/97; PULSE 77; RESP 18; TEMP 98; O2SAT 99
[2016-12-21 05:09] VITALS: BP 148/70; PULSE 54; RESP 20; TEMP 96.5; O2SAT 94
[2016-12-21] MEDS: SODIUM CHLOR 0.9% 1000 ML INJ 1,000 ML IV SCH ×2 (05:09→05:13)
[2016-12-21] MEDS: HEPARIN SODIUM - SQ 10,000 UNITS/ML VIAL SQ SCH (05:13)
--- NOTE | 2016-12-21 07:00 | MB ---
cc: SAGE BEAVER MD DATE OF CONSULTATION 12/20/2016 REASON FOR CONSULTATION "Altered mental status, possible dementia." HISTORY OF PRESENT ILLNESS Ms. Bonilla is an 89-year-old female with a past medical history of hypertension, hyperlipidemia, and severe osteoarthritis who presents to the [facility] brought in by her sister for an altered mental status. The patient lives by herself and as per information from medical records, the sister had stated that there were ongoing hallucinations over the past month. During the encounter, the patient is calm with no hallucinations, comprehends well, engages in the conversation, denies a history of stroke, TIA, confusional states or seizures. The patient states that she takes opiates for her chronic severe left hip pain and she also takes sleeping pills. Her main complaint during the encounter was her severe left hip pain and inability to move her left leg due to the pain. Her head CT scan revealed no evidence of acute intracranial pathology, but with chronic ischemic changes. REVIEW OF SYSTEMS A 12-point review of systems is negative except for what is stated in the HPI. PAST MEDICAL HISTORY 1. Hypertension 2. Hyperlipidemia 3. Osteoarthritis PAST SURGICAL HISTORY 1. Colon resection for diverticulitis 2. Cholecystectomy 3. Hysterectomy 4. Tonsillectomy 5. Left total shoulder replacement 6. 7. Appendectomy MEDICATIONS 1. Percocet 2. Amlodipine 3. Lunesta ALLERGIES SMOKE, GRASS, POLLEN, MOLD, WILLOW. FAMILY HISTORY Coronary artery disease and colon cancer. SOCIAL HISTORY Denies illicit drugs, but drinks wine nightly. PHYSICAL EXAMINATION GENERAL: Awake, alert, well-groomed, not in acute distress HEENT: Atraumatic, normocephalic. Intact vision, intact hearing. NECK: Trachea in the midline, supple, no signs of meningeal irritation. CARDIOVASCULAR: Regular rate and rhythm. RESPIRATORY: Clear to auscultation. No wheezes. GASTROINTESTINAL: Soft, abdomen nontender. MUSCULOSKELETAL: No clubbing, no cyanosis. NEUROLOGIC: Awake, alert, and oriented to time, person and place. No dysarthria. No dysphasia. Cranial nerves II-XII are grossly intact. Motor system examination is limited due to pain particularly in the left lower extremity that limits accurate assessment of muscle strength, but grossly she moves all four extremities. Sensation intact bilateral and symmetrical to light touch and temperature. Reflexes 1+ bilateral and symmetrical. Plantars are bilaterally downgoing. [id number] is intact. Unable to perform heel-to -rodríguez due to pain in the lower extremities and reflexes. LABORATORY DATA White BC 5.2, hemoglobin 10.2, MCV 84.3, platelet 219. Sodium 137, potassium 3.9 , BUN 7, creatinine 14, anion gap 25, calcium 8.1, AST 13, ALT 8. UDS negative. DIAGNOSTIC IMAGING - Head CT scan without contrast. No evidence of acute intracranial abnormality, chronic ischemic changes. DIAGNOSTIC IMPRESSION 1. Leukoencephalopathy resolved. 2. Possible underlying dementia. 3. Multifactorial may be related to chronic opiate use/infection/UTI/ electrolyte abnormality. PLAN 1. Neuro checks q. four hourly. 2. Limit the use of opioid medication and hold sedating medications. 3. Continue supportive medical therapy. 4. Vitamin B12, obtain vitamin B12 and TSH. 5. The patient needs neuro cognitive assessment as an outpatient. Thank you for allowing me to participate in the care of your patient. MD ANGEL Guillen/CAROLYN /10:50 PM /6:34 AM FELY
[2016-12-21 08:00] VITALS: BP 176/83; PULSE 60; RESP 18; TEMP 98.2; O2SAT 97
[2016-12-21] MEDS: DOCUSATE SODIUM 50 MG/SENNA 8.6 MG TAB PO SCH (08:50)
[2016-12-21] MEDS: SODIUM CHLORIDE 0.9% FLUSH 10 ML FLUSH IV FLUSH SCH (08:50)
[2016-12-21] MEDS: amLODIPine BESYLATE 5 MG TAB PO SCH (08:50)
[2016-12-21] MEDS ORDERED: SENN1TAB PO (08:54)
--- NOTE | 2016-12-21 08:55 | HHI.DCPOC ---
Discharge Care Plan Diagnosis: (1) Altered mental status, unspecified Your Health Problems Are: Difficulty with ADL Exercise Tolerance Goals to Promote Your Health * To prevent worsening of your condition and complications * To maintain your health at the optimal level Directions to Meet Your Goals Take your medications as prescribed Follow your dietary instruction Follow activity as directed Keep your appointments as scheduled Take your immunizations and boosters as scheduled If your symptoms worsen call your PCP, if no PCP go to Urgent Care Center or Emergency Room Smoking is Dangerous to Your Health. Avoid second hand smoke Call the 24-hour hour crisis hotline for domestic abuse at Eduardo Holland MD Dec 21, 2016 08:55
[2016-12-21 13:00] VITALS: BP 188/88; PULSE 60; RESP 18; TEMP 97.5; O2SAT 96
--- NOTE | 2016-12-21 13:03 | HHI.PR ---
Subjective Remarks Follow-up encephalopathy. She remains confused. She is calm and cooperative. Discussed with RN, patient has been going to other patient's rooms. Discussed with psychiatry, will consider transferring patient to [facility]. Discussed with case management, arrange for SNF dementia unit if psychiatry would not take patient Objective Vitals Vital Signs Date Time Temp Pulse Resp B/P (MAP) Pulse Ox O2 Delivery O2 Flow Rate FiO2 12/21/16 05:09 96.5 54 20 148/70 (96) 94 12/21/16 01:33 98.0 77 18 189/97 (127) 99 12/20/16 23:00 19 12/20/16 20:27 21 12/20/16 20:00 97.3 66 18 167/75 (105) 96 12/20/16 15:50 97.3 63 20 165/104 (124) 96 I/O 12/20/16 12/20/16 12/20/16 12/21/16 12/21/16 12/21/16 07:00 15:00 23:00 07:00 15:00 23:00 Intake Total 777 ml 600 ml Output Total 1500 ml Balance 777 ml -900 ml Intake Oral 600 ml IV Total 777 ml Output Urine Total 1500 ml # Bowel Movements 0 Result Diagram: 12/20/16 0640 12/20/16 0640 Imaging Last Impressions Head CT 12/19/16 1421 Signed Impressions: Service Date/Time: Monday, December 19, 2016 15:48 - CONCLUSION: 1. No evidence of acute intracranial pathology. Chronic ischemic changes as above. Eros Handley MD Chest X-Ray 12/19/16 0000 Signed Impressions: Service Date/Time: Monday, December 19, 2016 14:43 - CONCLUSION: Status-post left total shoulder arthroplasty. Compensated cardiomegaly without failure. Negative for infiltrate or effusion. Neto Reid MD FACR Objective Remarks GENERAL: This is a well-nourished, well-developed patient, in no apparent distress. CARDIOVASCULAR: Regular rate and rhythm without murmurs, gallops, or rubs. RESPIRATORY: Clear to auscultation. Breath sounds equal bilaterally. No wheezes , rales, or rhonchi. GASTROINTESTINAL: Abdomen soft, non-tender, nondistended. Normal active bowel sounds MUSCULOSKELETAL: Extremities without clubbing, cyanosis, or edema. NEURO: Alert & Oriented to person. Moves all ext x4 Procedures None A/P Problem List: (1) Altered mental status, unspecified ICD Code: R41.82 - Altered mental status, unspecified Status: Acute Assessment and Plan 89-year-old female with a past medical history significant for hypertension, dyslipidemia and osteoarthritis who presents to [facility] ED brought in by her sister for altered mental status. Encephalopathy - Multifactorial Likely from dementia and meds. - Chest x-ray personally reviewed shows compensated cardiomegaly without failure no evidence of infiltrate or effusion - CT head personally reviewed showing no evidence of acute intracranial pathology, chronic ischemic changes noted. - Consulted Neurology - Hold all [employer] REPRESENT[employer]IVE active medications - Neuro checks every 4 - Continuous cardiac monitoring - Discussed with psychiatry, will transfer patient to 2500 if family consents Abnormal urinalysis - Patient given ceftriaxone in the ED -Culture with contaminants, discontinue Rocephin MIGUELINA - Unknown baseline. Most recent creatinine value in the system 0.78 10/24/15 - Improved discontinue IV fluids - Avoid nephrotoxic agents - monitor I&Os - Monitor kidney function Hyponatremia - Likely due to dehydration/poor by mouth intake - Improved status on IV hydration Hypokalemia - Patient given repletion in the ED - Improved - mag level 2.3 HTN - Continue patient on home dose of amlodipine 5mg daily - Hold lisinopril/hydrochlorothiazide - Monitor BP Anemia - mild - Possibly due to dilution , no gross bleeding DVT prophylaxis - Heparin sq Discharge Planning Discharge patient to 2500 Condition on discharge: Stable Regular Diet as tolerated Ad Jen activity no driving Rx written: Seroquel Follow-up with primary care physician in one week Problem Qualifiers (1) Altered mental status, unspecified: Qualified Codes: R41.82 - Altered mental status, unspecified Eduardo Holland MD Dec 21, 2016 13:03
--- NOTE | 2016-12-21 13:57 | PD.PSY.CON ---
Provisional Diagnosis Admission Date Dec 19, 2016 at 17:02 [place] I. 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 Deferred [place] III. Hypertension, hyperlipidemia, osteoarthritis [place] IV. Progressive memory impairment [place] V. 35 History of Present Illness Service Psychiatry Consult Requested By Reason for Consult Agitation and psychosis Primary Care Physician Neto Bernal, HPI The patient is a 89-year-old woman, domiciled alone in [place], , supported by prison benefits, without any previous psychiatric history, no previous psychiatric hospitalizations, no previous suicidal attempts , past medical history of hypertension, hyperlipidemia, and severe osteoarthritis who presents to the [facility] brought in by her sister for an altered mental status. Patient was admitted in the medical floor due to acute UTI, after mental status and electrolyte imbalance. Patient was seen and cleared by neurology, head CT without any acute findings. Patient was consulted to psychiatry due to agitation, psychosis and paranoia. On psychiatric evaluation today patient is found calm, cooperative, pleasantly confused. She says that she is happy because she is going home today. She reports good mood, she says that her parents are coming to pick her up. She says that she has a huge garden with a lot of valencia that she have to take care of. She denies suicidal and homicidal ideation, she denies visual and auditory hallucinations. He and nurse returning, but she doesn't know where she is, she doesn't know the date she refuses to cooperate with MMS. As per nurse in charge, the patient has been often agitated, last night she became very paranoid, hostile, he was difficult to redirect, very restless, going from room to room. Collateral information from her sister, Alanis Callahan, , was obtained. The sister had stated that there were ongoing hallucinations over the past month. She says that the patient has been barricading herself in her house, calling her very often stating that there are people out of her house watching her, who wanted to kill her. Patient has not been taking care of her hygiene, her house is very disorganized and neglected, and she is very afraid of the safety of the patient. She says that she is looking for work to place her sister in an adequate penitentiary. Review of Systems Constitutional: DENIES: Diaphoretic episodes, Fatigue, Fever, Weight gain, Weight loss, Chills, Dizziness, Change in appetite, Night Sweats Endocrine: DENIES: Abnorml menstrual pattern, Heat/cold intolerance, Polydipsia , Polyuria, Polyphagia Eyes: DENIES: Blurred vision, Diplopia, Eye inflammation, Eye pain, Vision loss , Photosensitivity, Double Vision Ears, nose, mouth, throat: DENIES: Tinnitus, Hearing loss, Vertigo, Nasal discharge, Oral lesions, Throat pain, Hoarseness, Ear Pain, Running Nose, Epistaxis, Sinus Pain, Toothache, Odynophagia Respiratory: DENIES: Apneas, Cough, Snoring, Wheezing, Hemoptysis, Sputum production, Shortness of breath Gastrointestinal: DENIES: Abdominal pain, Black stools, Bloody stools, Constipation, Diarrhea, Nausea, Vomiting, Difficulty Swallowing, Anorexia Musculoskeletal: DENIES: Joint pain, Muscle aches, Stiffness, Joint Swelling, Back pain, Neck pain Integumentary: DENIES: Abnormal pigmentation, Pruritus, Rash, Nail changes, Breast masses, Breast skin changes, Nipple discharge Hematologic/lymphatic: DENIES: Bruising, Lymphadenopathy Immunologic/allergic: DENIES: Eczema, Urticaria Neurologic: DENIES: Abnormal gait, Headache, Localized weakness, Paresthesias, Seizures, Speech Problems, Tremor, Poor Balance Psychiatric: COMPLAINS OF: Confusion, Hallucinations, DENIES: Anxiety, Mood changes, Depression, Agitation, Suicidal Ideation, Homicidal Ideation, Delusions Past Family Social History Coded Allergies: Smoke (Verified Allergy, Severe, RASH, DIFFICULTY BREATHING, 12/19/16) grass pollen (Unverified Allergy, Severe, DIFFICULTY BREATHING, 12/19/16) PT STATES SOME GRASSES mold (Unverified Allergy, Severe, DIFFICULTY BREATHING AND RASH, 12/19/16) mold extracts (Unverified Allergy, Severe, RASH AND DIFFICULTY BREATHING, 12/19/16) willow (Unverified Allergy, Severe, SOB, 12/19/16) Uncoded Allergies: CLOROX (Allergy, Severe, RASH, 10/15/12) MILDEW (Allergy, Severe, DIFFUCULTY BREATHING, 10/15/12) unknown antibiotic (Allergy, Severe, unknown reaction, 10/15/12) Reported Medications Lisinopril-Hctz (Lisinopril-Hctz) 20-12.5 Mg Tab, 1 TAB PO DAILY for Blood Pressure Management, #30 TAB 0 Refills 9/27/17 Eszopiclone (Lunesta) 2 Mg Tab, 3 MG PO HS Y for INSOMNIA, TAB 0 Refills 12/19/16 Oxycodone-Acetaminophen (Percocet) 5-325 mg Tab, 1 TAB PO TID Y for PAIN, TAB 0 Refills 12/19/16 Haloperidol (Haloperidol) 0.5 Mg Tab, 0.5 MG PO HS, TAB 0 Refills 12/19/16 Amlodipine (Amlodipine) 5 Mg Tab, 5 MG PO DAILY for Blood Pressure Management, # 30 TAB 0 Refills 11/23/16 Discontinued Reported Medications [chlesterol pill] No Conflict Check, 1 TAB PO DAILY 11/23/16 Oxycodone-Acetaminophen (Percocet) 5-325 mg Tab, 0.5 TAB PO Q6H Y for PAIN, TAB 0 Refills 11/23/16 Current Medications Medications (Trade) Dose Ordered Sig/Jose Cruz Route Start Time Stop Time Status Last Admin (NS Flush) 2 ml UNSCH PRN IV FLUSH 12/19/16 17:00 (NS Flush) 2 ml BID IV FLUSH 12/19/16 21:00 12/19/16 20:22 (Tylenol) 650 mg Q4H PRN PO 12/19/16 17:00 (Zofran Inj) 4 mg Q6H PRN IVP 12/19/16 17:00 (Compazine Supp) 25 mg Q12H PRN RECTAL 12/19/16 17:00 (Heparin Inj) 5,000 units Q12H SQ 12/19/16 18:00 12/21/16 05:13 (Tylenol) 650 mg Q6H PRN PO 12/19/16 17:00 (Narcan Inj) 0.4 mg UNSCH PRN IV PUSH 12/19/16 17:00 (Millicent-Colace) 1 tab BID PO 12/19/16 21:00 12/21/16 08:50 (Milk Of Magnesia Liq) 30 ml Q12H PRN PO 12/19/16 17:00 (Senokot) 17.2 mg Q12H PRN PO 12/19/16 17:00 (Dulcolax Supp) 10 mg DAILY PRN RECTAL 12/19/16 17:00 (Lactulose Liq) 30 ml DAILY PRN PO 12/19/16 17:00 (Norvasc) 5 mg DAILY PO 12/20/16 09:00 12/21/16 08:50 (SEROquel) 12.5 mg BID@09,12 PO 12/22/16 09:00 UNV Family History No family psychiatric history Social History The patient was born and raised in [place], she lives alone in [place], she is , supported by [employer] benefits Patient's Strengths (min. 2) Support of her sister, no previous psychiatric history Physical Exam At this moment, no EPS, no withdrawal, no stiffness, no tremors, no psychomotor agitation or retardation Vital Signs Vital Signs Date Time Temp Pulse Resp B/P (MAP) Pulse Ox O2 Delivery O2 Flow Rate FiO2 12/21/16 05:09 96.5 54 20 148/70 (96) 94 12/20/16 20:27 21 12/19/16 18:17 Room Air Lab Results Date/Time Source Procedure Growth Status 12/19/16 15:15 Urine Clean Catch Urine Culture - Final 50-100,000 CFU/ML MIXED GRAM POSITIVE... 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 As per collateral information from her sister, and nursing report, patient has been increasingly agitated, paranoid, and having visual hallucinations that had being anxiety provoking and disruptive for the patient. Patient has been progressively deteriorating in ADL , self-care and memory in the last month. Since the patient has poor family and social support, and and she lives alone, most probably after this hospitalization she is going to need placement in a penitentiary. However, patient needs to be stabilized psychiatrically because due to the level of psychosis and disorganization she can be a danger to herself and others. Delirium, dementia with behavioral disturbances, unspecified psychosis are among the differential diagnosis to work out. We'll start Seroquel 12.5 mg twice a day for psychosis and behavioral dysregulation. Patient will be transferred to a catheter once medically appropriate. Consult appreciated. Assessment & Plan Estimated LOS: Neno Paulino MD Dec 21, 2016 13:57
[2016-12-21] MEDS ORDERED: PILL SPLITTER OTHER PRN (14:15)
[2016-12-21] MEDS ORDERED: cloNIDine HCL 0.1 MG TAB PO PRN (15:00)
[2016-12-21] MEDS ORDERED: QUET1TAB7 PO (15:01)
[2016-12-21 16:39] VITALS: BP 135/92
[2016-12-22] MEDS ORDERED: QUEtiapine FUMARATE 25 MG TAB PO SCH (09:00)
== END 2016-12-21 17:07 | DRG 884 ==
LOC: NEPE 13:56 → NEDA 17:02 → HOCA 18:56
PROVIDERS: ADMIT Internal Medicine; ATTEND Internal Medicine
DX: F03.90 Unspecified dementia, unspecified severity, without behavioral disturbance, psychotic disturbance, mood disturbance, and anxiety (principal); G93.40 Encephalopathy, unspecified; N17.9 Acute kidney failure, unspecified; E87.1 Hypo-osmolality and hyponatremia; E86.0 Dehydration; D64.9 Anemia, unspecified; E87.6 Hypokalemia; Z96.612 Presence of left artificial shoulder joint; M19.90 Unspecified osteoarthritis, unspecified site; I10 Essential (primary) hypertension; E78.5 Hyperlipidemia, unspecified; F29 Unspecified psychosis not due to a substance or known physiological condition; H91.90 Unspecified hearing loss, unspecified ear; K59.00 Constipation, unspecified
CPT/HCPCS: 70450; 71010; 80053; 80061; 80307; 81001; 82140; 82550; 82607; 82746; 83036; 83735; 84443; 84484; 85025; 85610; 85730; 86592; 87086; 93005; 96374; J0696; J1644; J7030; J7040

== ENCOUNTER 2016-12-21 17:15 | Inpatient (IN) | payer MEDICARE ==
[~2016-12-21 17:15] MED LIST changes: +ESZO1TAB PO; +HALO0.5T PO; +LISI20TA PO; +QUET1TAB7 PO; +SENN1TAB PO; -[UNRECOGNIZED DRUG - REMARK] PO
[2016-12-21 17:20] VITALS: BP 147/87; PULSE 111; RESP 18; O2SAT 95
[2016-12-21] MEDS ORDERED: ACETAMINOPHEN 325 MG TAB PO PRN (18:00)
[2016-12-21] MEDS ORDERED: hydrOXYzine HCL 50 MG TAB PO PRN (18:00)
[2016-12-21] MEDS ORDERED: MAGNESIUM HYDROXIDE SUSP 30 ML CUP PO PRN (18:00)
[2016-12-21] MEDS ORDERED: ALUMINUM/MAGNESIUM/SIMETH 30 ML CUP PO PRN (18:00)
[2016-12-21] MEDS: DOCUSATE SODIUM 50 MG/SENNA 8.6 MG TAB PO SCH (21:00)
[2016-12-22 06:01] VITALS: BP 128/63; PULSE 58; RESP 16; TEMP 98.2; O2SAT 97
[2016-12-22] MEDS: DOCUSATE SODIUM 50 MG/SENNA 8.6 MG TAB PO SCH ×4 (08:59→21:00)
[2016-12-22] MEDS: amLODIPine BESYLATE 5 MG TAB PO SCH (08:59)
[2016-12-22] MEDS: QUEtiapine FUMARATE 25 MG TAB PO SCH ×2 (08:59→11:23)
[2016-12-22] MEDS ORDERED: REMOVE OLD PATCH T-DERMAL SCH (09:00)
[2016-12-22] MEDS ORDERED: NICOTINE 21 MG/24 HR PATCH T-DERMAL SCH (09:00)
[2016-12-22 09:41] LABS: ANION GAP 8 MEQ/L (5-15); BICARBONATE 26.9 MEQ/L (21.0-32.0); BLOOD UREA NITROGEN 11 MG/DL (7-18); CHLORIDE 99 MEQ/L (98-107); GLOMERULAR FILTRATION RATE 68 ML/MIN (>89); POTASSIUM 3.4 MEQ/L (3.5-5.1); SODIUM (NA) 134 MEQ/L (136-145)
[2016-12-22] MEDS ORDERED: POTASSIUM CHLORIDE 10 MEQ CONTROLLED RELEASE TAB PO ONE (10:00)
[2016-12-22 10:07] LABS: HDL CHOLESTEROL 58.3 MG/DL (40.0-60.0); LDL CHOLESTEROL 119 MG/DL (0-99)
[2016-12-22 11:17] LABS: HEMOGLOBIN A1a 0.8 %; HEMOGLOBIN A1b 1.7 %; HEMOGLOBIN LA1C 1.8 %; HEMOGLOBIN P3 3.7 %
--- NOTE | 2016-12-22 11:35 | EKG ---
Date Performed: 12/22/2016 Time Performed: 10:44:45 PTAGE: 89 years EKG: Sinus rhythm LEFT ANTERIOR FASCICULAR BLOCK NONSPECIFIC ST & T-WAVE ABNORMALITY ABNORMAL ECG PREVIOUS TRACING : 12/19/2016 14.43 No significant change from previous tracing noted. DOCTOR: Javon Patrick Interpretating Date/Time 12/22/2016 11:34:37
--- NOTE | 2016-12-22 14:20 | PD.CONS ---
HPI Service [facility] Hospitalists Consult Requested By Dr. Mann Reason for Consult Medical management Primary Care Physician Unknown Diagnoses: History of Present Illness This is a 89-year-old female known to me from the medical floor. Consultation has been requested by her attending to evaluate and manage multiple medical conditions. She was admitted at [facility] for encephalopathy which was felt to be multifactorial related to delirium, psychosis, dementia, meds and constipation. Patient had extensive workup which included laboratories and imaging studies. She was then transferred to psychiatry floor for further evaluation and treatment. She was also treated for abnormal urinalysis and initially given ceftriaxone but culture grew contaminants and antibiotic was discontinued. She also had acute kidney injury improved with IV hydration as well as hyponatremia. She also had hypokalemia and received supplementation. She has hypertension and her blood pressure was monitored on amlodipine. She also has mild anemia secondary to the lesion. No gross bleeding. At this time patient has no complaints denies headache or dizziness. She remains confused. All other systems reviewed negative Review of Systems Except as stated in HPI: all other systems reviewed are Neg Past Family Social History Allergies: Coded Allergies: Smoke (Verified Allergy, Severe, RASH, DIFFICULTY BREATHING, 12/19/16) grass pollen (Unverified Allergy, Severe, DIFFICULTY BREATHING, 12/19/16) PT STATES SOME GRASSES mold (Unverified Allergy, Severe, DIFFICULTY BREATHING AND RASH, 12/19/16) mold extracts (Unverified Allergy, Severe, RASH AND DIFFICULTY BREATHING, 12/19/16) willow (Unverified Allergy, Severe, SOB, 12/19/16) Uncoded Allergies: CLOROX (Allergy, Severe, RASH, 10/15/12) MILDEW (Allergy, Severe, DIFFUCULTY BREATHING, 10/15/12) unknown antibiotic (Allergy, Severe, unknown reaction, 10/15/12) Past Medical History As previously mentioned. Hyperlipidemia, degenerative disc disease and osteoarthritis Past Surgical History Colon resection for diverticulitis, cholecystectomy, tonsillectomy, hysterectomy , left shoulder replacement, section and appendectomy Reported Medications Seroquel and Norvasc Family History Coronary artery disease and colon cancer per EMR. Patient states her mother had CVA Social History Denies tobacco use. Drinks wine infrequently Physical Exam Vital Signs Vital Signs Date Time Temp Pulse Resp B/P (MAP) Pulse Ox O2 Delivery O2 Flow Rate FiO2 12/22/16 06:01 98.2 58 16 128/63 (84) 97 12/21/16 17:20 111 18 147/87 (107) 95 Physical Exam GENERAL: This is a well-nourished, well-developed patient, in no apparent distress. SKIN: No rashes, ecchymoses or lesions. Cool and dry. HEAD: Atraumatic. Normocephalic. No temporal or scalp tenderness. EYES: Pupils equal round and reactive. Extraocular motions intact. No scleral icterus. No injection or drainage. ENT: Nose without bleeding, purulent drainage or septal hematoma. Throat without erythema, tonsillar hypertrophy or exudate. Uvula midline. Airway patent. NECK: Trachea midline. No JVD or lymphadenopathy. Supple, nontender, no meningeal signs. CARDIOVASCULAR: Regular rate and rhythm without murmurs, gallops, or rubs. RESPIRATORY: Clear to auscultation. Breath sounds equal bilaterally. No wheezes , rales, or rhonchi. GASTROINTESTINAL: Abdomen soft, non-tender, nondistended. No guarding. MUSCULOSKELETAL: Extremities without clubbing, cyanosis, or edema. No joint tenderness, effusion, or edema noted. No calf tenderness. Negative Homans sign bilaterally. NEUROLOGICAL: Awake and alert. Cranial nerves II through XII intact. Grossly nonfocal Laboratory Laboratory Tests Test 12/22/16 08:25 Blood Urea Nitrogen 11 Creatinine 0.80 Random Glucose 78 Calcium Level 9.2 Sodium Level 134 Potassium Level 3.4 Chloride Level 99 Carbon Dioxide Level 26.9 Anion Gap 8 Estimat Glomerular Filtration Rate 68 Hemoglobin A1c 5.5 Magnesium Level 2.1 Triglycerides Level 94 Cholesterol Level 196 LDL Cholesterol 119 HDL Cholesterol 58.3 Cholesterol/HDL Ratio 3.36 Thyroid Stimulating Hormone 3rd Gen 0.890 Result Diagram: 12/22/16 0825 Assessment and Plan Assessment and Plan This is a 89-year-old female admitted at [facility] for encephalopathy which was felt to be multifactorial related to delirium, psychosis, dementia, meds and constipation. Patient had extensive workup which included laboratories and imaging studies. She was then transferred to psychiatry floor for further evaluation and treatment. Consultation has been requested by her attending to evaluate and manage multiple medical conditions. Hypertension. Stable continue amlodipine and BP monitoring. Mild anemia secondary to dilution. No gross bleeding. Continue to monitor Constipation. Continue Millicent-Colace DVT prophylaxis patient is ambulatory Discussed Condition With Patient and nursing staff Eduardo Holland MD Dec 22, 2016 14:20
--- NOTE | 2016-12-22 19:41 | HHI.HP ---
Provisional Diagnosis Admission Date Dec 21, 2016 at 17:15 [place] I. Unspecified psychosis Certification of Person's Competence To Provide Express and Informed Consent I have personally examined Lucila Bonilla , a person being served at [facility] on, Dec 22, 2016 19:41. Express and informed consent means consent voluntarily given in writing, by a competent person, after sufficient explanation and disclosure of the subject matter involved to enable the person to make a knowing and willful decision without any element of force, fraud, deceit, duress, or other form of constraint or coercion. This person is 18 years of age or older, is not now known to be incompetent to consent to treatment with a guardian advocate, and does not have a health care surrogate or proxy currently making medical treatment decisions. I have found this person to be one of the following: [] Competent to provide express and informed consent, as defined above, for voluntary admission to this facility and is competent to provide express and informed consent for treatment. He/she has the consistent capacity to make well reasoned, willful, and knowing decisions concerning his or her medical or mental health treatment. The person fully and consistently understands the purpose of the admission for examination/placement and is fully capable of personally exercising all rights assured [place] [x] Incompetent to provide express and informed consent to voluntary admission, and this is incompetent to provide express and informed consent to treatment. The person must be transferred to involuntary status and a petition for a guardian advocate filed with the Circuit Court. [] Refusing to provide express and informed consent to voluntary admission but is competent to provide express and informed consent for treatment. The person must be discharged or transferred to involuntary status. Form shall be completed within 24 hours of a person's arrival at the receiving facility and filed in the clinical record of each person: 1. Admitted on a voluntary basis 2. Permitted to provide express and informed consent to his/her own treatment 3. Allowed to transfer from involuntary to voluntary status 4. Prior to permitting a person to consent to his or her own treatment after having been previously found incompetent to consent to treatment. History of Present Illness Capacity: Lacks Capacity HPI Patient is a 89 y/o woman, , living alone, supported on [place] [facility] benefits with no past psychiatric history who was admitted to the medical floor for AMS, UTI and electrolyte impbalances, evaluated by psychiatry consult and admitted to the inpatient psychiatry unit for psychosis. As per psychiatry consult note, patient was cleared by neurology, head CT negative, consult placed for agitation, psychosis and paranoia. She was noted to be confused, agitated, paranoid and hostile, wandering from room to room. Collateral was obtained from sister as per note, patient had ongoing hallucinations over the past month, barricading herself in the house, and stating that people outside of her house were watching her and wanted to kill her. It was also reported that the patient was not taking care of her hygiene, neglecting upkeep of her house and house disorganized. Patient was seen on the psychiatry unit lying on hospital bed, calm and cooperative with interview. Patient states that she is in [place] [facility] [place], alert and oriented to person only. She denies recalling events prior to admission. She reports living alone, reports sleep has been not well, not eating well, decreased energy and concentration with mood lately being pretty good. She reports having auditory hallucinations I dont know what they say to me. Family psychiatric history: denies mental illness nor suicide attempts Past psychiatric history: no previous psychiatric diagnosis, no previous psychiatric admissions, no previous suicide attempts or self injurious behavior. No previous medication trials. Substance use history: denies Past medical history: HTN, HLD Allergies: Clorox, mildew, unknown antibiotic Social history: Born and raised in [place], , living alone in [place], supported by [place] [facility] benefits. Review of Systems Except as stated in HPI: all other systems reviewed are Neg Past Psych History Violence risk - others (6 mos) moderate Violence risk - self (6 mos) low Substance Abuse History Drugs/Alcohol past 12 months patient denies Past Family Social History Coded Allergies: Smoke (Verified Allergy, Severe, RASH, DIFFICULTY BREATHING, 12/19/16) grass pollen (Unverified Allergy, Severe, DIFFICULTY BREATHING, 12/19/16) PT STATES SOME GRASSES mold (Unverified Allergy, Severe, DIFFICULTY BREATHING AND RASH, 12/19/16) mold extracts (Unverified Allergy, Severe, RASH AND DIFFICULTY BREATHING, 12/19/16) willow (Unverified Allergy, Severe, SOB, 12/19/16) Uncoded Allergies: CLOROX (Allergy, Severe, RASH, 10/15/12) MILDEW (Allergy, Severe, DIFFUCULTY BREATHING, 10/15/12) unknown antibiotic (Allergy, Severe, unknown reaction, 10/15/12) Active Scripts Quetiapine (Quetiapine) 25 Mg Tab, 12.5 MG PO BID@09,12 for Agitation, #60 TAB Prov:Eduardo Holland MD 12/21/16 Sennosides-Docusate Sodium (Senna Plus 8.6-50 mg) 8.6 Mg-50 Mg Tab, 1 TAB PO BID for Constipation, #60 TAB Prov:Eduardo Holland MD 12/21/16 Reported Medications Amlodipine (Amlodipine) 5 Mg Tab, 5 MG PO DAILY for Blood Pressure Management, # 30 TAB 0 Refills 11/23/16 Discontinued Reported Medications Lisinopril-Hctz (Lisinopril-Hctz) 20-12.5 Mg Tab, 1 TAB PO DAILY for Blood Pressure Management, #30 TAB 0 Refills 12/19/16 Eszopiclone (Lunesta) 2 Mg Tab, 3 MG PO HS Y for INSOMNIA, TAB 0 Refills 12/19/16 Oxycodone-Acetaminophen (Percocet) 5-325 mg Tab, 1 TAB PO TID Y for PAIN, TAB 0 Refills 12/19/16 Haloperidol (Haloperidol) 0.5 Mg Tab, 0.5 MG PO HS, TAB 0 Refills 12/19/16 [chlesterol pill] No Conflict Check, 1 TAB PO DAILY 11/23/16 Oxycodone-Acetaminophen (Percocet) 5-325 mg Tab, 0.5 TAB PO Q6H Y for PAIN, TAB 0 Refills 11/23/16 Current Medications Medications (Trade) Dose Ordered Sig/Jose Cruz Route Start Time Stop Time Status Last Admin (Benadryl) 25 mg HS PRN PO 12/21/16 18:00 (Tylenol) 650 mg Q4H PRN PO 12/21/16 18:00 (Milk Of Magnesia Liq) 30 ml DAILY PRN PO 12/21/16 18:00 (Mag-Al Plus Susp Liq) 30 ml Q6H PRN PO 12/21/16 18:00 (Atarax) 25 mg Q6H PRN PO 12/21/16 18:00 (Norvasc) 5 mg DAILY PO 12/22/16 09:00 12/22/16 08:59 (SEROquel) 25 mg BID@09,12 PO 12/22/16 09:00 12/22/16 11:23 (Millicent-Colace) 1 tab BID PO 12/21/16 21:00 12/22/16 08:59 (Millicent-Colace) 1 tab BID PO 12/22/16 10:00 12/22/16 10:00 Social History Born and raised in [place], , living alone in [place], supported by [place] [facility] benefits. Patient's Strengths (min. 2) verbal and communicative Physical Exam Patient found to be in no acute distress,, no noted gross motor abnormalities, no tremors of EPS, no noted psychomotor agitation of retardation. Vital Signs Vital Signs Date Time Temp Pulse Resp B/P (MAP) Pulse Ox O2 Delivery O2 Flow Rate FiO2 12/22/16 06:01 98.2 58 16 128/63 (84) 97 Lab Results Labs reviewed. Test 12/22/16 08:25 Blood Urea Nitrogen 11 MG/DL Creatinine 0.80 MG/DL Random Glucose 78 MG/DL Calcium Level 9.2 MG/DL Sodium Level 134 MEQ/L Potassium Level 3.4 MEQ/L Chloride Level 99 MEQ/L Carbon Dioxide Level 26.9 MEQ/L Anion Gap 8 MEQ/L Estimat Glomerular Filtration Rate 68 ML/MIN Hemoglobin A1c 5.5 % Magnesium Level 2.1 MG/DL Triglycerides Level 94 MG/DL Cholesterol Level 196 MG/DL LDL Cholesterol 119 MG/DL HDL Cholesterol 58.3 MG/DL Cholesterol/HDL Ratio 3.36 RATIO Thyroid Stimulating Hormone 3rd Gen 0.890 uIU/ML Mental Status Examination Appearance appears stated age, in [facility], fair hygiene and grooming, calm and cooperative with interview; fair eye contact Speech: Slow Orientation: Person Memory: Impaired (describe) Thought Process: Linear Thought Content: Unremarkable Language fluent and spontaneous Fund of Knowledge fair Hallucination Type: Auditory Attention and Concentration: Good Suicidal Ideation: No Previous Suicide Attempts: No Homicidal Ideation: No Previous Homicide Attempts: No Insight: Poor Judgment: Poor Affect: Euthymic Mood: Euthymic Assessment & Plan Problem List: (1) Unspecified psychosis ICD Codes: F29 - Unspecified psychosis not due to a substance or known physiological condition Assessment & Plan Estimated LOS: 5-7 days. Patient is a 89 y/o with no past psychiatric history who was admitted to the medical floor for AMS, acute UTI and electrolyte imbalance who was admitted to the inpatient psychiatry unit after psychiatric evaluation for psychotic symptoms. Patient may be psychotic symptoms secondary to recent UTI and dehydration vs. neurocognitive disorder. Will continue quetiapine 25mg PO BID for psychosis. Monitor for medication response and ADRs. Continue to monitor mood and behavior. Discharge planning in progress. Discharge Planning At risk for further decompensation if at lower level of care Yang Mann MD Dec 22, 2016 19:41
[2016-12-22] MEDS: diphenhydrAMINE HCL 25 MG CAP PO PRN (20:20)
[2016-12-23 05:14] VITALS: BP 145/69; PULSE 65; RESP 16; TEMP 97.7
[2016-12-23] MEDS: amLODIPine BESYLATE 5 MG TAB PO SCH (08:27)
[2016-12-23] MEDS: DOCUSATE SODIUM 50 MG/SENNA 8.6 MG TAB PO SCH ×2 (08:27→21:11)
[2016-12-23] MEDS: QUEtiapine FUMARATE 25 MG TAB PO SCH ×2 (08:27→12:08)
--- NOTE | 2016-12-23 13:02 | HHI.PYPN ---
Subjective Remarks This is a request for second opinion. Admission note was reviewed and I agree with the contents case was discussed with nursing and patient was seen. Patient was admitted for paranoid and agitated behavior. During the interview, she is hard of hearing limiting the interview. She is alert and oriented 1. Mood and affect is irritable. Paranoid with her treatment. 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 Criteria include acute psychosis and combative behavior Justification for Cont. Inpt. Patient would decompensate in a less restrictive setting Prateek Santos DO Dec 23, 2016 13:02
--- NOTE | 2016-12-23 13:38 | HHI.PR ---
Subjective Remarks Follow-up hypertension and constipation. She wants to go home. Denies any complaints no headache, dizziness, chest pain, abnormal pain, nausea and vomiting. Discussed with RN Objective Vitals Vital Signs Date Time Temp Pulse Resp B/P (MAP) Pulse Ox O2 Delivery O2 Flow Rate FiO2 12/23/16 05:14 97.7 65 16 145/69 (94) I/O 12/22/16 12/22/16 12/22/16 12/23/16 12/23/16 12/23/16 07:00 15:00 23:00 07:00 15:00 23:00 Intake Total 120 ml 240 ml Balance 120 ml 240 ml Intake Oral 120 ml 240 ml # Voids 1 1 1 Result Diagram: 12/22/16 0825 Objective Remarks Well-developed, well-nourished in no distress Pupils reactive to light no jaundice Equal in expansion clear to auscultation Regular rate and rhythm Alert and nonfocal A/P Assessment and Plan This is a 89-year-old female admitted at [facility] for encephalopathy which was felt to be multifactorial related to delirium, psychosis, dementia, meds and constipation. Patient had extensive workup which included laboratories and imaging studies. She was then transferred to psychiatry floor for further evaluation and treatment. Consultation has been requested by her attending to evaluate and manage multiple medical conditions. Hypertension. Stable continue amlodipine and BP monitoring. Mild anemia secondary to dilution. No gross bleeding. Continue to monitor Constipation. Continue Millicent-Colace DVT prophylaxis patient is ambulatory Discharge Planning She is medically stable, we'll sign off Eduardo Holland MD Dec 23, 2016 13:38
[2016-12-23 17:06] VITALS: BP 145/80; PULSE 62; RESP 17; TEMP 97.2; O2SAT 97
[2016-12-24 05:18] VITALS: BP 143/69; PULSE 57; RESP 16; TEMP 98.1
[2016-12-24] MEDS: amLODIPine BESYLATE 5 MG TAB PO SCH (09:00)
[2016-12-24] MEDS: QUEtiapine FUMARATE 25 MG TAB PO SCH ×2 (09:00→12:00)
[2016-12-24] MEDS: DOCUSATE SODIUM 50 MG/SENNA 8.6 MG TAB PO SCH ×2 (09:00→20:02)
--- NOTE | 2016-12-24 14:51 | HHI.PYPN ---
Subjective Remarks Patient seen for follow-up, chart reviewed. Patient found lying in hospital bed , cooperative interview stating that she had in some left hip pain which has been chronic for quite some time and has been following with orthopedists as an outpatient. Patient states she's having slightly more hip pain today but was able to ambulate. Patient reports having good bowel movement denies having any problems eating or drinking. Patient mentions that she was type given her normal anti-hypertension medication and she does not recognize the colors of tablets she normally takes. It was explained to the patient that the tapestry, and a different colors but would be the same medicines. Patient states that she didn't sleep well last evening and would like to go home. Review of Systems Except as stated in HPI: all other systems reviewed are Neg Objective Alert: Yes [place]: Person Mood: Calm Affect: Restricted, Other Memory Intact: Comment (impaired) Hallucinations: Other (denies) Delusions: No Delusion Type: Paranoid Suicidal: Ideation (denies) Homicidal: Ideation (denies) Insight/Judgment Poor insight, impulse control and judgment Vitals/IOs Vital Signs Date Time Temp Pulse Resp B/P (MAP) Pulse Ox O2 Delivery O2 Flow Rate FiO2 12/24/16 05:18 98.1 57 16 143/69 (93) 12/23/16 17:06 97 Intake and Output 12/24/16 12/24/16 12/25/16 08:00 16:00 00:00 Intake Total 120 ml Balance 120 ml Assessment & Plan Problem List: (1) 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 Continue current treatment, discharge planning in progress. Justification for Cont. Inpt. At risk for further decompensation if at lower level of care Yang Mann MD Dec 24, 2016 14:51
[2016-12-24 18:00] VITALS: BP 175/88; PULSE 61; RESP 18; TEMP 97.8; O2SAT 98
[2016-12-24] MEDS: diphenhydrAMINE HCL 25 MG CAP PO PRN (20:01)
[2016-12-25] MEDS ORDERED: amLODIPine BESYLATE 5 MG TAB PO ONE (00:15)
[2016-12-25 06:00] VITALS: BP 186/84; PULSE 59; RESP 18; TEMP 97.8; O2SAT 95
[2016-12-25] MEDS: amLODIPine BESYLATE 5 MG TAB PO SCH (08:45)
[2016-12-25] MEDS: QUEtiapine FUMARATE 25 MG TAB PO SCH ×2 (08:45→12:00)
[2016-12-25] MEDS: DOCUSATE SODIUM 50 MG/SENNA 8.6 MG TAB PO SCH ×2 (08:45→21:44)
--- NOTE | 2016-12-25 16:18 | HHI.PYPN ---
Subjective Remarks Patient seen for follow-up, chart reviewed. Patient found lying on hospital bed , calm and cooperative with interview. Patient found in good spirits, was able to recall having met me but was unsure if I was her doctor. Patient states taht she has been feeling well, continues with some hip pain but able to ambulate. Patient states that she has been able to walk to the water fountain and back to her room. She denies any mood or psychotic symptoms at this time. Review of Systems Except as stated in HPI: all other systems reviewed are Neg Objective Alert: Yes [place]: Person Mood: Calm Affect: Appropriate Memory Intact: Comment (impaired) Hallucinations: Other (denies) Delusions: No Delusion Type: Paranoid (denies today) Suicidal: Ideation (denies) Homicidal: Ideation (denies) Insight/Judgment poor insight, fair impulse control and limited judgment Vitals/IOs Vital Signs Date Time Temp Pulse Resp B/P (MAP) Pulse Ox O2 Delivery O2 Flow Rate FiO2 12/25/16 06:00 97.8 59 18 186/84 (118) 95 Intake and Output 12/25/16 12/25/16 12/26/16 08:00 16:00 00:00 Intake Total 0 ml 240 ml Balance 0 ml 240 ml Assessment & Plan Problem List: (1) 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 Patient tolerating medications well, continue current treatment. Will order PT evaluation. Discharge planning in progress. Justification for Cont. Inpt. At risk for further decompensation if at lower level of care. Yang Mann MD Dec 25, 2016 16:18
[2016-12-25 19:40] VITALS: BP 138/99; PULSE 101; RESP 18
[2016-12-26 06:00] VITALS: BP 153/78; PULSE 59; RESP 16; TEMP 97.9; O2SAT 94
[2016-12-26] MEDS: amLODIPine BESYLATE 5 MG TAB PO SCH (09:25)
[2016-12-26] MEDS: DOCUSATE SODIUM 50 MG/SENNA 8.6 MG TAB PO SCH ×2 (09:25→21:00)
[2016-12-26] MEDS: QUEtiapine FUMARATE 25 MG TAB PO SCH ×2 (09:25→12:15)
[2016-12-26] MEDS ORDERED: SENN1TAB PO (13:06)
[2016-12-26] MEDS ORDERED: AMLO5 PO (13:06)
[2016-12-26] MEDS ORDERED: QUET1TAB7 PO (13:06)
--- NOTE | 2016-12-26 16:29 | HHI.PYPN ---
Subjective Remarks Patient seen for follow-up, chart reviewed. Patient found lying in hospital bed noted be somewhat irritable today as she states that she would like to go home. Patient denies any physical complaints, patient reports being able to family better with a walker was provided to her where she was appreciated of. Patient reports that she is agreeable to continue her medications but that she wants to be able to be discharged. Patient was noted to be upset for believing that her sister was not able to visit her and she stated that she had thought she had heard her voice down the [place]antos.Patient advised that she will be discharged tomorrow morning early when she knowledge. Review of Systems Except as stated in HPI: all other systems reviewed are Neg Mental Status Examination Consciousness: Alert Appearance: Appropriate Speech: Slow Orientation: Person Memory: Impaired (describe) Thought Content: Linear Thought Associations: Intact Language: Other (fluid and spontaneous) Fund of Knowledge: Average Hallucination Type: None Attention and Concentration: Good Suicidal Ideation: No Previous Suicide Attempts: No Homicidal Ideation: No Previous Homicide Attempts: No Insight: Poor Judgment: Adequate Affect: Irritable Mood: Appropriate Motor Activity: Normal gait Results Vitals/IOs Vital Signs Date Time Temp Pulse Resp B/P (MAP) Pulse Ox O2 Delivery O2 Flow Rate FiO2 12/26/16 06:00 97.9 59 16 153/78 (103) 94 Intake and Output 12/26/16 12/26/16 12/27/16 08:00 16:00 00:00 Intake Total 240 ml 240 ml Balance 240 ml 240 ml Assessment & Plan Problem List: (1) 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 Patient to continue current treatment. Patient will be discharged to[facility] tomorrow morning. Transportation arranged. Discharge planning in progress Justification for Cont. Inpt. At risk for further decompensation if at lower level of care Yang Mann MD Dec 26, 2016 16:29
[2016-12-26 17:00] VITALS: BP 187/92; PULSE 76; RESP 20; TEMP 98
[2016-12-26] MEDS ORDERED: cloNIDine HCL 0.1 MG TAB PO ONE (17:30)
[2016-12-26 18:22] VITALS: BP 162/82; PULSE 62
[2016-12-27 06:02] VITALS: BP 116/56; PULSE 52; RESP 17; TEMP 98.6; O2SAT 95
[2016-12-27] MEDS: QUEtiapine FUMARATE 25 MG TAB PO SCH ×2 (09:00→12:00)
[2016-12-27] MEDS: amLODIPine BESYLATE 5 MG TAB PO SCH (09:00)
[2016-12-27] MEDS: DOCUSATE SODIUM 50 MG/SENNA 8.6 MG TAB PO SCH (09:00)
--- NOTE | 2016-12-27 11:28 | HHI.DS ---
Psychiatry Discharge Summary Inpatient Psychiatric care?: Yes Advance Directive: No Reason Not Provided: Due to Patient Condition Mental Health AdvanceDirective: No Health Care Proxy: Yes Admission Admission Date Dec 21, 2016 at 17:15 Admission Diagnosis: (1) Unspecified psychosis ICD Code: F29 - Unspecified psychosis not due to a substance or known physiological condition Brief History Patient is a 89 y/o woman, , living alone, supported on skilled nursing benefits with no past psychiatric history who was admitted to the medical floor for AMS, UTI and electrolyte impbalances, evaluated by psychiatry consult and admitted to the inpatient psychiatry unit for psychosis. As per psychiatry consult note, patient was cleared by neurology, head CT negative, consult placed for agitation, psychosis and paranoia. She was noted to be confused, agitated, paranoid and hostile, wandering from room to room. Collateral was obtained from sister as per note, patient had ongoing hallucinations over the past month, barricading herself in the house, and stating that people outside of her house were watching her and wanted to kill her. It was also reported that the patient was not taking care of her hygiene, neglecting upkeep of her house and house disorganized. Patient was seen on the psychiatry unit lying on hospital bed, calm and cooperative with interview. Patient states that she is in a [employer] [place], alert and oriented to person only. She denies recalling events prior to admission. She reports living alone, reports sleep has been not well, not eating well, decreased energy and concentration with mood lately being pretty good. She reports having auditory hallucinations I dont know what they say to me. Family psychiatric history: denies mental illness nor suicide attempts Past psychiatric history: no previous psychiatric diagnosis, no previous psychiatric admissions, no previous suicide attempts or self injurious behavior. No previous medication trials. Substance use history: denies Past medical history: HTN, HLD Allergies: Clorox, mildew, unknown antibiotic Social history: Born and raised in [place], , living alone in [place], supported by skilled nursing benefits. Tobacco Use In Past 30 Days: Cigarettes But Not Daily Alcohol Use: Never Hospital Course Patient is a 89 y/o woman, , living alone, supported on skilled nursing benefits with no past psychiatric history who was admitted to the medical floor for AMS, UTI and electrolyte imbalances, evaluated by psychiatry consult and admitted to the inpatient psychiatry unit for psychosis. Patient was started kept on quetiapine 25mg PO BID which she tolerated well. Patient was noted to be with improved mood, not behavioral dyscontrol since admission, and cooperative with staff. Upon discharge, patient denied any SI, HI, AVH or delusions. He agrees to continue treatment and outpatient follow up for continuity of care. Supportive psychotherapy provided. I have counseled the patient regarding warning signs for need to return to the psychiatric emergency room as part of a general safety plan. Results Blood Pressure 116 / 56 Vital Signs Date Time Temp Pulse Resp B/P (MAP) Pulse Ox O2 Delivery O2 Flow Rate FiO2 12/27/16 06:02 98.6 52 17 116/56 (76) 95 Laboratory Results Test 12/22/16 08:25 Cholesterol Level 196 MG/DL (120-200) HDL Cholesterol 58.3 MG/DL (40.0-60.0) Hemoglobin A1c 5.5 % (4.3-6.0) LDL Cholesterol 119 MG/DL (0-99) Triglycerides Level 94 MG/DL (42-150) Summary of Procedures none Pending results at discharge: No Medications # of Antipsychotic meds at D/C: 1 Approp Antipsych med options 1 - Minimum of three failed multiple trials of monotherapy. 2 - Documented plan to taper to monotherapy due to previous use of multiple meds OR cross-taper in progress at D/C. 3 - Documentation of augmentation of Clozapine. 4 - Justification other than those listed in allowable values 1-3, document here : Discharge Discharge Date: Dec 27, 2016 Discharge Diagnosis: (1) Unspecified psychosis ICD Code: F29 - Unspecified psychosis not due to a substance or known physiological condition Pt Condition on Discharge: Stable Discharge Disposition: ACLF/SHELTER Discharge Instructions Diet Instructions: Heart Healthy Diet Activities you can perform: Weight Bearing as [place] Scheduled Appointment: Facility Discharge Time > 30 minutes Mental Status Examination Consciousness: Alert Appearance: Appropriate Speech: Slow Orientation: Person, Place Memory: Impaired (describe) Thought Content: Linear, Logical Thought Associations: Intact Language: Other (fluid and spontaneous) Fund of Knowledge: Average Hallucination Type: None Attention and Concentration: Good Suicidal Ideation: No Previous Suicide Attempts: No Homicidal Ideation: No Previous Homicide Attempts: No Insight: Poor Judgment: Adequate Affect: Euthymic Mood: Appropriate Motor Activity: Normal gait Discharge/Advance Care Plan Health Problems: (1) Unspecified psychosis Goals to promote your health * To prevent worsening of your condition and complications * To maintain your health at the optimal level Directions to meet your goals Take your medications as prescribed Follow your dietary instruction Follow activity as directed Keep your appointments as scheduled Take your immunizations and boosters as scheduled If your symptoms worsen call your PCP, if no PCP go to Urgent Care Center or Emergency Room For 15/10 questions related to your inpatient stay or results of tests pending at discharge, please contact Dr. Yang Mann at Smoking is Dangerous to Your Health. Avoid second hand smoking Yang Mann MD Dec 27, 2016 10:49
--- NOTE | 2016-12-27 14:41 | PD.TTN ---
Patient Problems 1. Discharge planning 2. Medication compliance 3. Knowledge deficit 4. Lack of coping skills Progress Toward Goals Provider Present: Dr. Hernandez Mann Provider Input: Pt is able to discharge to placement still on antibiotics Psychiatric Counselors Present: Reyna Damian LCSW Psych Therapist Input: family is working on placement and updated they want her at [facility] to accept her and discharge there tomorrow if possible still suspicious and non compliant Group Spec/RT/OT/PRATER Present: John Hayden OT Group Spec/RT/OT/PRATER Input: she does not attend groups and is very angry Reyna Damian LCSW Dec 27, 2016 14:41
== END 2016-12-27 13:30 | DRG 885 ==
LOC: H250 17:15
PROVIDERS: ADMIT Student in an Organized Health Care Education/Training Program; ATTEND Student in an Organized Health Care Education/Training Program
DX: F29 Unspecified psychosis not due to a substance or known physiological condition (principal); D64.9 Anemia, unspecified; I10 Essential (primary) hypertension; E78.5 Hyperlipidemia, unspecified; H91.90 Unspecified hearing loss, unspecified ear; M19.90 Unspecified osteoarthritis, unspecified site; Z96.612 Presence of left artificial shoulder joint; K59.00 Constipation, unspecified; M25.552 Pain in left hip
CPT/HCPCS: 80048; 80061; 83036; 83735; 84443; 93005